=== PATIENT | male | born 1970 | race Caucasian/White ===

== ENCOUNTER 2024-07-03 02:30 | Emergency (ER) | payer BC, SELFPAY ==
[2024-07-03 02:31] VITALS: BP 132/80; BP 143/93; PULSE 104; PULSE 107; RESP 18; TEMP 37.2; O2SAT 97; O2SAT 98; BMI 22.9
--- NOTE | 2024-07-03 02:35 | PC.NURSE ---
MD obrien made aware of L. eye swollen shut and bleeding/purulent drainage. dressing placed on eye, awaiting eval by provider.
--- OUTSIDE RECORDS SUMMARY | 2024-07-03 03:05 | XMS_ITS | Continuity of Care Document ---
Author Name [facility] Organization [facility] Care Team Providers Care Driller Helper Name Role Phone [facility] Unavailable Unavailable Problems Combined list of problems from Department of Defense and Veterans Affairs facilities. It does not include entries that were removed or entered in error. 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 right worse than left/ Dr Malin NEOS surg planned 04/23 [facility] Gout (SCT [id number]) Active Condition [facility] Hepatic fibrosis Active Condition Sep 15, 2022 Entered By: AR COSTELLO Comment: see consult notes from [facility] telehepatology/ Jun 2022 [facility] History of surgery Active Condition Jan 24, 2019 Entered By: CELINE ALCANTARA Comment: total knee replacement 2018 Entered By: CELINE ALCANTARA Comment: right elbow ( mass removed - calcium deposit removed [facility] Hyponatraemia Active Condition Oct Entered By: AR COSTELLO Comment: d/w vet plan to reduce fluid intake/ recheck labs February 13/ f/u appt Feb 20 [facility] Neutrophil count below reference range Active Condition Nov 08, 2022 Entered By: AR COSTELLO Comment: longstanding low WBC/ no known w/u in past/ likely due to etoh/ documented low WBC in 2018 [facility] Osteoarthritis of right knee joint Active Condition May 15 3 Entered By: AR COSTELLO Comment: mod to severe/ last plain film 2019 , vet wants handicap placard 2022 [facility] Primary insomnia Active Condition [facility] Serum AST (aspartate aminotransferase) level outside reference range Active Condition Mar 27, 2024 Entered By: AR COSTELLO Comment: prob related to etoh use [facility] Sleep apnea syndrome Active Condition Oct 31, 2022 Entered By: AR COSTELLO Comment: see Pulm consult 2020 [facility] Under care of multiple providers Active Condition Jan 11, 2019 Entered By: CELINE ALCANTARA [facility] Entered By: CELINE ALCANTARA Comment: [facility] Major depressive disorder, recurrent, moderate Active Condition DoD Diagnosis: ICD-10-CM M10.9 Gout, unspecified Active Diagnosis [facility] Diagnosis: ICD-10-CM F10.10 Alcohol abuse, uncomplicated Active Diagnosis [facility] Diagnosis: ICD-10-CM F41.9 Anxiety disorder, unspecified Active Diagnosis [facility] Diagnosis: ICD-10-CM G47.00 Insomnia, unspecified Active Diagnosis [facility] Medications Combined list of outpatient medications from Department of Defense and Veterans Affairs facilities.Medications provided include 1) outpatient medications from the last 15 months, and 2) patient-reported medications. Medication Details Route Status Patient Instructions Prescription Expires Prescription Number Last Dispense Date Ordering Provider Order Date Order Qty Source ALLOPURINOL 100MG TAB TAKE ONE TABLET BY MOUTH ONCE DAILY FOR GOUT ORAL ACTIVE 08/28/2024 [id number] RobiBEBETOKISHANQUEENIE MOREL 2023 90 [facility] ALLOPURINOL 100MG TAB TAKE ONE TABLET BY MOUTH ONCE DAILY ORAL ACTIVE Karina CARDOZO HUMAIRA 2021 [facility] COLCHICINE 0.6MG TAB TAKE ONE TABLET BY MOUTH ONCE DAILY FOR GOUT ORAL ACTIVE 08/28/2024 [id number] RobiLuciaNYAQUEENIE MOREL KARIS Nancy 2023 90 [facility] COLCHICINE TAB TAKE BY MOUTH ONCE DAILY NEEDED ORAL ACTIVE PETROFF,S UANNE 2018 [facility] NAPROXEN 250MG TAB TAKE ONE TABLET BY MOUTH PRN ORAL ACTIVE Karina CARDOZO HUMAIRA 2021 [facility] Immunizations Combined list of available immunizations from the Department of Defense and Veterans Affairs facilities. Immunization Series Date Given Administered By Site Reaction Lot Number CVX Code Drug Splitting Machine Feeder Status Comments Source COVID-19 (MODERNA), MRNA, LNP-S, PF, 50 MCG/0.5 ML (AGES 12+ YEARS) 3 2023 CHARO JOHNS RIGHT DELTO ID [id number] 312 complet ed [facility] INFLUENZA, INJECTABLE, QUADRIVALENT, PRESERVATIVE FREE 2023 CHARO JOHNS LEFT DELTO ID [id number] A 150 complet ed [facility] PNEUMOCOCCAL CONJUGATE PCV20, POLYSACCHARID E [id number] CONJUGATE, ADJUVANT, PF 2022 ALEX BALDWIN LEFT DELTO ID [id number] 216 complet ed [facility] INFLUENZA, UNSPECIFIED FORMULATION 2022 88 complet ed [facility] INFLUENZA, UNSPECIFIED FORMULATION 2020 88 complet ed [facility] COVID-19 (MODERNA), MRNA, LNP-S, PF, 100 MCG/0.5ML DOSE OR 50 MCG/0.25ML DOSE 2 2020 207 complet ed [facility] COVID-19 (MODERNA), MRNA, LNP-S, PF, 100 MCG/0.5ML DOSE OR 50 MCG/0.25ML DOSE 1 2020 207 complet ed [facility] INFLUENZA, SEASONAL, INJECTABLE 2019 141 complet ed [facility] Influenza, seasonal, injectable 1 2017 141 Transcribed (TRS) complet ed Influenza , seasonal, injectabl e DoD INFLUENZA, SEASONAL, INJECTABLE 2017 141 complet ed [facility] Influenza, seasonal, injectable 1 2016 [id number] 141 Seqirus (SEQ) comple t ed Influenza , seasonal, injectabl e DoD Influenza, injectable, Madin Nelson Canine Kidney, preservative free, quadrivalent 1 2016 [id number] 171 Seqirus (SEQ) comple t ed Influenza , injectabl e, Madin Irma Canine Kidney, preservat nydia free, quadrival ent DoD Influenza, seasonal, injectable, preservative free 10 2015 [id number] Seqirus (SEQ) comple t ed Influenza , seasonal, injectabl e, preservat nydia free DoD Influenza, seasonal, injectable, preservative free 9 2014 [id number] 140 CSL [employer] (CSL) complet ed Influenza , seasonal, injectabl e, preservat nydia free DoD Influenza, seasonal, injectable, preservative free 0 2013 [id number] 140 CSL [employer] (CSL) complet ed Influenza , seasonal, injectabl e, preservat nydia free DoD Influenza, injectable, Madin Nelson Canine Kidney, preservative free 7 2012 [id number] 153 Novartis Pharmaceutica l Shraddha. (NOV) complet ed Influenza , injectabl e, Madin Irma Canine Kidney, preservat nydia free DoD tetanus toxoid, reduced diphtheria toxoid, and acellular pertu is vaccine, adsorbed 0 2012 [id number] 115 Sanofi Pasteur (PMC) complet ed tetanus toxoid, reduced diphtheri a toxoid, and acellular pertussis vaccine, adsorbed DoD Influenza, seasonal, injectable, preservative free 6 2012 [id number] 140 [employer] (CSL) complet ed Influenza , seasonal, injectabl e, preservat nydia free DoD Influenza, seasonal, injectable, preservative free 5 2011 [id number] 140 CS [employer]olog[employer] Inc. (CSL) complet ed Influenza , seasonal, injectabl e, preservat nydia free DoD influenza virus vaccine, split virus (incl. purified surface antigen)-reti red CODE [id number] [facility] [employer]. (CSL) complet ed influenza virus vaccine, split virus (incl. purified surface antigen)- retired CODE DoD Novel influenza-H1N 1-09, injectable 1 2009 [id number] 127 Novartis Apalya. (NOV) complet ed Novel influenza -R1I1-41, injectabl e DoD influenza virus vaccine, live, attenuated, for intranasal use 1 2008 [id number] 111 [employer]. (MED) complet ed influenza virus vaccine, live, attenuate d, for intranasa l use DoD influenza virus vaccine, split virus (incl. purified surface antigen)-reti red CODE 1 2008 [id number] 15 BioPro [employer] ([facility]) complet ed influenza virus vaccine, split virus (incl. purified surface antigen)- retired CODE DoD hepatitis A vaccine, adult dosage 2 2007 [id number] 52 [employer] (SKB) complet ed hepatitis A vaccine, adult dosage DoD hepatitis A vaccine, adult dosage 1 2007 [id number] Merck (MSD) complet ed hepatitis A vaccine, adult dosage DoD influenza virus vaccine, split virus (incl. purified surface antigen)-reti red CODE 1 2006 [id number] 3AA 15 [employer] (B) complet ed influenza virus vaccine, split virus (incl. purified surface antigen)- retired CODE DoD tetanus and diphtheria toxoids, adsorbed, preservative free, for adult use (2 Lf of tetanus toxoid and 2 Lf of diphtheria toxoid) 1 2006 [id number] 09 Sanofi Pasteur ([facility]) complet ed tetanus and diphtheri a toxoids, adsorbed, preservat nydia free, for adult use (2 Lf of tetanus toxoid and 2 Lf of diphtheri a toxoid) DoD hepatitis B vaccine, adult dosage 3 1995 43 Transcribed (TRS) complet ed hepatitis B vaccine, adult dosage DoD measles, mumps and rubella virus vaccine 1 1979 03 Transcribed (TRS) complet ed measles, mumps and rubella virus vaccine DoD trivalent poliovirus vaccine, live, oral 1 1979 02 Transcribed (TRS) complet ed trivalent polioviru s vaccine, live, oral DoD Results Combined list of recent chemistry, hematology and other laboratory results from Department of Defense and Veterans Affairs, ranging from 15 months to all on record, depending upon the facility. Order Name Results Value Reference Range Date Interpretation Specimen Comments Source HEPATITI S B SURFACE ANTIGEN (HBsAg)- WH HEPATITIS B VIRUS SURFACE AG [PRESENCE] IN SERUM OR PLASMA BY IMMUNOASSA Y Non Reactive 03/27 Specimen Type: SERUM Comment: This test detects both IgG and IgM antibodies. A Reactive result ( Positive prior to 04/29/13) may indicate either current or previous hepatitis B infection. Antibodies to Hepatitis B Core may be the only marker of recent hepatitis B infection during the window period when Hepatitis B surface antigen has disappeared and Hepatitis B surface antibodies are not yet detectable. A Reactive result ( Positive prior to 04/29/13) is diagnostic of acute or chronic hepatitis B infection. The presence of Hepatitis B surface antigen is frequently associated with infectivity . Ordering Provider: RAN LERMA Report Released Date/Time: Mar 27, 2024 12:01 PM Reporting Lab: [facility] [address] [address] Performing Lab: [facility] [address] [address] [facility] HEPATITI S B CORE (Total) Ab HEPATITIS B VIRUS CORE AB [PRESENCE] IN SERUM OR PLASMA BY IMMUNOASSA Y Non Reactive 03/27 Specimen Type: SERUM Comment: This test detects both IgG and IgM antibodies. A Reactive result ( Positive prior to 04/29/13) may indicate either current or previous hepatitis B infection. Antibodies to Hepatitis B Core may be the only marker of recent hepatitis B infection during the window period when Hepatitis B surface antigen has disappeared and Hepatitis B surface antibodies are not yet detectable. A Reactive result ( Positive prior to 04/29/13) is diagnostic of acute or chronic hepatitis B infection. The presence of Hepatitis B surface antigen is frequently associated with infectivity . Ordering Provider: RAN LERMA Report Released Date/Time: Mar 27, 2024 12:01 PM Reporting Lab: [facility] [address] [address] Performing Lab: [facility]ITALRCHILDR[facility]USN [facility] [address] [facility] [address] [facility] CRISTINA SCREEN/T ITER NUCLEAR AB [PRESENCE] IN SERUM NEG 03/27 Specimen Type: SERUM No comment entered. Ordering Provider: RAN LERMA Report Released Date/Time: Mar 27, 2024 12:01 PM Reporting Lab: [facility] [address] Performing Lab: [facility] [address] [facility] [address] [facility] URIC ACID URATE [MASS/VOLU ME] IN SERUM OR PLASMA 7.4 mg/dL 3.5 - 7.2 03/27 H Specimen Type: SERUM No comment entered. Ordering Provider: RAN LERMA Report Released Date/Time: Mar 27, 2024 12:01 PM Reporting Lab: [facility] [address] Performing Lab: [facility]PITALRMOUNTAIN VIEW HOSPITALTRN [facility]ENTERCHUSETS [address] [address] [facility]N [facility] FERRITIN FERRITIN [MASS/VOLU ME] IN SERUM OR PLASMA 322 ng/mL 20 - 300 03/27 H Specimen Type: SERUM No comment entered. Ordering Provider: RAN LERMA Report Released Date/Time: Mar 27, 2024 12:01 PM Reporting Lab: [facility] [address] Performing Lab: [facility] [place] [facility] [address] [facility] [address] [facility] HEPATITI S C ANTIBODY (HCV)-AR C HEPATITIS C VIRUS AB [PRESENCE] IN SERUM NON-REAC TIVE 03/27 Specimen Type: SERUM Comment: Hep C Ab: No HCV antibody detected. If recent infection is suspected or other evidence suggests HCV infection, consider HCV nucleic acid testing Ordering Provider: RAN LERMA Report Released Date/Time: Mar 27, 2024 12:01 PM Reporting Lab: [facility] [place] [place] [facility] [address] [facility] [address] Performing Lab: [facility] [place] [facility] [address] [facility] [address] [facility] ALBUMIN ALBUMIN [MASS/VOLU ME] IN SERUM OR PLASMA 4.2 g/dL 3.5 - 5.0 03/27 Specimen Type: SERUM No comment entered. Ordering Provider: RAN LERMA Report Released Date/Time: Mar 27, 2024 12:01 PM Reporting Lab: [facility]ITALRL TRN [facility]ITALUSETS [facility] [address] [facility] [address] Performing Lab: [facility] [place] [facility] [address] [facility] [address] [facility] IRON & TIBC PANEL IRON BINDING CAPACITY [MASS/VOLU ME] IN SERUM OR PLASMA 333 ug/dL 204 - 475 03/27 Specimen Type: SERUM No comment entered. Ordering Provider: RAN LERMA Report Released Date/Time: Mar 27, 2024 12:01 PM Reporting Lab: [facility] [place] [place] [facility] [address] [facility] [address] Performing Lab: [place] [facility] [place] [facility] [address] [facility] [address] [facility]OSPITALRMOUNTAIN VIEW HOSPITALTRN [facility]ENTERCHUSE [facility] IRON & TIBC PANEL IRON [MASS/VOLU ME] IN SERUM OR PLASMA 161 ug/dL 40 - 160 09/11 /2024 H Specimen Type: SERUM No comment entered. Ordering Provider: RAN LERMA Report Released Date/Time: Mar 27, 2024 12:01 PM Reporting Lab: [facility] [place] [facility] [address] [facility] [address] Performing Lab: [facility] [place] [facility] [address] [facility] [address] [facility] [place] [facility] IRON & TIBC PANEL IRON/IRON BINDING CAPACITY.T OTAL [MASS RATIO] IN SERUM OR PLASMA 48.4 20.0 - 50.0 03/27 Specimen Type: SERUM No comment entered. Ordering Provider: RAN LERMA Report Released Date/Time: Mar 27, 2024 12:01 PM Reporting Lab: [facility] [place] [facility] [address] [facility] [address] Performing Lab: [facility] [place] [facility] [address] [facility] [address] [facility] [place] [facility] IRON & TIBC PANEL TRANSFERRI N [MASS/VOLU ME] IN SERUM OR PLASMA 252 mg/dL 200 - 360 03/27 Specimen Type: SERUM No comment entered. Ordering Provider: RAN LERMA Report Released Date/Time: Mar 27, 2024 12:01 PM Reporting Lab: [facility] [place] [address] [address] Performing Lab[facility] [place] [facility] [address] [facility] [address] [facility] PROTEIN, TOTAL PROTEIN [MASS/VOLU ME] IN SERUM OR PLASMA 6.9 g/dL 6.0 - 8.3 03/27 Specimen Type: SERUM No comment entered. Ordering Provider: RAN LERMA Report Released Date/Time: Mar 27, 2024 12:01 PM Reporting Lab: [facility] [place] [facility] [address] [facility] [address] Performing Lab: [facility] [place] [address] [address] [facility] ALKALINE PHOSPHAT ASE ALKALINE PHOSPHATAS E [ENZYMATIC ACTIVITY/V OLUME] IN SERUM OR PLASMA 43 U/L 40 - 150 03/27 Specimen Type: SERUM No comment entered. Ordering Provider: RAN LERMA Report Released Date/Time: Mar 27, 2024 12:01 PM Reporting Lab: [facility] [place] [facility] [address] [facility] [address] Performing Lab: [facility] [address] [facility] [address] [facility] Vital Signs Combined list of inpatient and outpatient Vital Signs from Department of Defense and Veterans Affairs, ranging from 12 months to all on record, depending upon the facility. Vital Sign Value Date Comments Source SYSTOLIC BLOOD PRESSURE 158 03/27/20 11:44:09 [facility] DIASTOLIC BLOOD PRESSURE 82 024 11:44:09 [facility] PULSE OXIMETRY 96 03/27/2024 11:44:09 [facility] WEIGHT 153.8 03/27/2024 11:44:09 [facility] BMI 23kg/m2 03/27/2024 11:44:09 [facility] PAIN 6 03/27/2024 11:44:09 [facility] HEIGHT 69 03/27/2024 11:44:09 [facility] TEMPERATURE 97.7 03/27/2024 11:44:09 [facility] PULSE 98 03/27/2024 11:44:09 [facility] RESPIRATION 16 03/27/2024 11:44:09 [facility] SYSTOLIC BLOOD PRESSURE 133 08/28/19 24 14:11:04 [facility] DIASTOLIC BLOOD PRESSURE 87 024 14:11:04 [facility] PULSE OXIMETRY 96 08/28/2023 14:11:04 [facility] WEIGHT 150 08/28/2023 14:11:04 [facility] BMI 22kg/m2 08/28/2023 14:11:04 [facility] PAIN 0 08/28/2023 14:11:04 [facility] TEMPERATURE 98 08/28/2023 14:11:04 [facility] PULSE 94 08/28/2023 14:11:04 [facility] RESPIRATION 16 08/28/2023 14:11:04 [facility] Encounters Combined list of: 1) Encounters from Department of Veterans Affairs facilities going back up to thelast 18 months. 2) Encounters from the Department of Defense facilities going back up to 280 months. Location Location Details Encounter Type Encounter Number Reason For Visit Attending Provider ADM Date DC Date Status Disposition Source [facility] Encounter [id number] 01/10 [facility] [id number] 01/19 [facility] OFFICE O/P EST MOD 30-39 MIN [id number] Diagnos is: ICD-10- CM G47.00 Insomni a, unspeci fied
RAN LOCKE 02/20 [facility] En[facility] [id number] JOHNIE VERGARA 04/12 [facility] [id number] 10/19 /2023 [facility] [id number] 05/30 [facility] En[facility] [id number] 05/31 [facility] QNHP OL DIG ASSMT&MGMT 21+ [id number] Diagnos is: ICD-10- CM F41.9 Anxiety disorde r, unspeci fied
LEI CHAO 08/22 [facility] OFFICE O/P EST MOD 30 MIN [id number] Diagnos is: ICD-10- CM F10.10 Alcohol abuse, uncompl icated< br/> RAN LOCKE 08/28 [facility] En[facility] [id number] [facility] En[facility] [id number] 09/14 [facility] En[facility] [id number] 10/12 [facility] En[facility] [id number] ADRIANA PORTILLO 10/30 [facility] En[facility] [id number] 11/13 [facility] En[facility] [id number] 11/20 [facility] Out[facility] Encounter [id number] 11/27 [facility] En[facility] [id number] 11/27 [facility] OFFICE O/P EST MOD 30 MIN [id number] Diagnos is: ICD-10- CM M10.9 Gout, unspeci fied
RAN LOCKE 03/27 [facility] [id number] 03/28 [facility] Out[facility] Encounter [id number] 06/24 [facility] Encounter [id number] 06/24 [facility] Procedures Combined list of: 1) Procedures from Department of Veterans Affairs facilities going back up to thelast 18 months, not all VA non-surgical procedures are included; 2) All procedures from the Department of Defense facilities. Procedure Procedure Type Code Date Perfomer Comments Sourc e PSYCHIATRIC DIAGNOSTIC EVALUATION 12/31/2019 [facility] BRIEF EMOTIONAL/BEHAVIORAL ASSESSMENT (EG, DEPRESSION INVENTORY, ATTENTION-DEFICIT/HY PERACTIVITY DISORDER [ADHD] SCALE), WITH SCORING AND DOCUMENTATION, PER STANDARDIZED INSTRUMENT 06/05/2019 [facility] Psychiatric Diagnostic Evaluation Comprehensive Examination Psychiatric Diagnostic Evaluation Comprehensive Examination 27960 KERRY HURTADO DoD Psychometric Emotional / Behavioral A e ment Psychometric Emotional / Behavioral Assessment 04130 KERRY HURTADO DoD Waiver services; not otherwise specified (NOS) OTTATI, ZACHARY [facility] Social History Combined list of available smoking, tobacco, and other social history from Department of Defense and Veterans Affairs facilities. Social History Type Response Date Comment Sourc e Tobacco smoking status NHIS VA-TOBACCO USER EVERY DAY 03/27/2024 [facility] [place] [facility] History of tobacco use VA-TOBACCO DOESNT USE WI 30 MIN WAKEUP 03/27/2024 [facility] [place] [facility] History of tobacco use VA-TOBACCO NEVER USED 10/17/2022 [facility] [place] [facility] History of tobacco use VA-TOBACCO USER EVERY DAY 10/15/2021 [facility] [place] [facility] History of tobacco use VA-TOBACCO USE ADVICE 03/24/2020 [facility] [place] [facility] History of tobacco use 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 [facility] Plan of Care List of future care activities from [facility] facilities. Additional future care activities may be listed in the Assessment and Plan section. Date/Time Care Activity Care Activity Detail Facili ty 10/31/2024 AMBULATORY - MEDICINE AMBULATORY - MEDICI NE [facility] [place] [facility]
--- OUTSIDE RECORDS SUMMARY | 2024-07-03 03:05 | XMS_ITS ---
Author Name [facility] [place] [facility] [place] Address [address] [place] [address] Care Team Providers Care Certified Performance Technologist Name Role Phone RAN COSTELLO Primary Care Provider Unav ailable Insurance Providers: All historical and current Section Date Range: From patient's date of to the date document was created. This section includes the names of all active insurance providers for the patient. Insurance Provider Type of Coverage Plan Name Start of Policy Coverage End of Policy Coverage Group Number Member ID Insurance Provider's Telephone Number Policy Serrano's Name Patient's Relationship to Policy Serrano KAYLIE WALLIS CT FEDERAL PREFERRED PROVIDER ORGANIZAT ION (PPO) STAND YSABEL SELF Jul 26, 2015 [id number] BEN RAN Garcia PATIENT BCBS [place] FEP PREFERRED PROVIDER ORGANIZAT ION (PPO) STAND YSABEL INDIV IDUAL Jul 26, 2015 [id number] BEN GarciaRAN PATIENT CAREMARK FEPRX PLAN PRESCRIPT ION CAREM ARK FEPRX Jul 26, 2015 [id number] BEN RAN Garcia PATIENT CAREMARK-F EP BCBS PRESCRIPT ION FEP CAREM ARK Jul 26, 2015 [id number] BEN GarciaRAN PATIENT Selected Encounter This section includes the information on record at [place] for the Encounter. Date/Time Encounter Type Encounter Description Reason Provider Source Aug 22, 2023 09:21 AM QNHP OL DIG ASSMT&MGMT 21+ MH INTGRTD CARE IND ICD-10-CM F41.9 Anxiety disorder, unspecified HELENE CHAO Karina Encounter Template Text not used by [place] Assessments - Encounter Diagnoses This section includes the primary and secondary diagnoses documented for the Encounter. Date/Time Primary/Secondary Diagnosis Diagnosis Name Provider Source Sep 06, 2023 02:26 PM PRIMARY Anxiety disorder, unspecified HELENE CHAO [facility] Plan of Treatment: Future Appointments (+ 6 months) and Future Tests (+/- 45 days) The Plan of Treatment section includes future care activities for the patient from all [facility] This section includes future appointments and future orders which are active, pending or scheduled. Future Appointments This section includes appointments that were scheduled to occur 6 months from the date of the Encounter, up to a maximum of 20 appointments. The data comes from all [facility]. Appointment Date/Time Appointment Type Appointme nt Facility Name Aug 28, 2023 02:00 PM AMBULATORY - MEDICINE [facility] Nov 14, 2023 01:45 PM AMBULATORY - MEDICINE [facility] Active, Pending, and Scheduled Orders This section includes a listing of several types of active, pending, and scheduled orders, including clinic medications orders, diagnostic test orders, procedure orders and consult orders; where the start date of the order is 45 days before the date of the Encounter or 45 days after the date of theEncounter. The data comes from all [facility]. Test Date/Time Test Type Test Details Facility Name Aug 28, 2023 12:00 AM Laboratory - Chemistry Order BASIC METABOLIC PANEL (non-fasting) BLOOD (SST-SERUM) [facility] Aug 28, 2023 12:00 AM Laboratory - Chemistry Order GAMMA-GTP BLOOD (SST-SERUM) [facility] Aug 28, 2023 12:00 AM Laboratory - Chemistry Order CALCIUM BLOOD (SST-SERUM) [facility] Aug 28, 2023 12:00 AM Laboratory - Chemistry Order MAGNESIUM BLOOD (SST-SERUM) [facility] Aug 28, 2023 12:00 AM Laboratory - Chemistry Order HEMOGLOBIN A1C PANEL BLOOD (LAV-BLOOD) [facility] Aug 28, 2023 12:00 AM Laboratory - Chemistry Order TSH BLOOD (SST-SERUM) [facility] Aug 28, 2023 12:00 AM Laboratory - Chemistry Order CBC AND DIFF (AUTO) BLOOD (LAV-BLOOD) [facility] Aug 28, 2023 12:00 AM Laboratory - Chemistry Order HEPATITIS B SURFACE ANTIGEN (HBsAg)-WH BLOOD (SST-SERUM) [facility] Aug 28, 2023 12:00 AM Laboratory - Chemistry Order HEPATITIS B CORE (Total) Ab BLOOD (SST-SERUM) [facility] Aug 28, 2023 12:00 AM Laboratory - Chemistry Order FERRITIN BLOOD (SST-SERUM) [facility] Aug 28, 2023 12:00 AM Laboratory - Chemistry Order HEPATITIS C ANTIBODY (HCV)-ARC BLOOD (MARBLED-TOP SERUM) [facility] Aug 28, 2023 12:00 AM Laboratory - Chemistry Order IRON & TIBC PANEL BLOOD (SST-SERUM) [facility] Aug 28, 2023 12:00 AM Laboratory - Chemistry Order CRISTINA SCREEN/TITER BLOOD (SST-GOLD) SERUM [facility] Aug 28, 2023 12:00 AM Laboratory - Chemistry Order ALBUMIN BLOOD (SST-SERUM) [facility] Aug 28, 2023 12:00 AM Laboratory - Chemistry Order PROTEIN,TOTAL BLOOD (SST-SERUM) SP [facility] Aug 28, 2023 12:00 AM Laboratory - Chemistry Order ALKALINE PHOSPHATASE BLOOD (SST-SERUM) [facility] Aug 28, 2023 12:00 AM Laboratory - Chemistry Order ALBUMIN BLOOD (SST-SERUM) [facility] Aug 28, 2023 12:00 AM Laboratory - Chemistry Order AST BLOOD (SST-SERUM) [facility] [place] [facility] Aug 28, 2023 12:00 AM Laboratory - Chemistry Order BILIRUBIN, TOTAL BLOOD (SST-SERUM) SP [place] [facility] [place] [facility] Aug 28, 2023 12:00 AM Laboratory - Chemistry Order ALT BLOOD (SST-SERUM) [facility] [place] [facility] Aug 28, 2023 12:00 AM Laboratory - Chemistry Order URIC ACID BLOOD (SST-SERUM) [facility] [place] [facility] Aug 28, 2023 12:00 AM Laboratory - Chemistry Order BILIRUBIN, DIRECT BLOOD (SST-SERUM) [facility] [place] [facility] Aug 28, 2023 02:30 PM Laboratory - Chemistry Order PT & INR (PROTIME) BLOOD (BLUE-PLASMA) [facility] Social History: Smoking Status (Most current) and Tobacco Use (All prior to encounter date) This section includes the most current, and the historical, smoking and tobacco- related health factors from the [place] facility where the Encounter took place. Current Smoking Status This section includes the most current smoking, or tobacco-related health factor, from the [place] facility where the Encounter took place. Date/Time Current Smoking Status Comment Facil ity Oct 17, 2022 01:00 PM VA-TOBACCO [facility] USED [facility] Tobacco Use History This section includes a history of the smoking, or tobacco-related health factors, that were collected on or before the date of the Encounter. The data comes from the [place] facility where the Encounter took place. Date/Time Smoking Status/Tobacco Use Comment F acility Oct 15, 2021 01:30 PM VA-TOBACCO USE 30 YEARS OR MORE [place] [facility] [place] [facility] Oct 15, 2021 01:30 PM VA-TOBACCO USE ADVICE [place] [facility] [place] [facility] Oct 15, 2021 01:30 PM VA-TOBACCO USE FINANCIAL ACCOUNTANT NO [place] [facility] [place] [facility] Oct 15, 2021 01:30 PM VA-TOBACCO USE MED NO [place] [facility] [place] [facility] Oct 15, 2021 01:30 PM VA-TOBACCO USE [place] 30 MIN OF WAKEUP [place] [facility] [place] [facility] Oct 15, 2021 01:30 PM VA-TOBACCO USER EVERY DAY [facility] [place] [facility] Mar 24, 2020 03:00 PM VA-TOBACCO USE 30 YEARS OR MORE [facility] [place] [facility] Mar 24, 2020 03:00 PM VA-TOBACCO USE ADVICE [facility] [place] [facility] Mar 24, 2020 03:00 PM VA-TOBACCO USE FINANCIAL ACCOUNTANT NO [facility] [place] [facility] Mar 24, 2020 03:00 PM VA-TOBACCO USE MED NO [facility] [place] [facility] Mar 24, 2020 03:00 PM VA-TOBACCO USE [place] 30 MIN OF WAKEUP [facility] [place] [facility] Mar 24, 2020 03:00 PM VA-TOBACCO USER EVERY DAY [facility] [place] [facility] Dec 24, 2018 02:37 PM VA-TOBACCO USE > 1 5 LESS THAN 30 YEARS [facility] [place] [facility] Dec 24, 2018 02:37 PM VA-TOBACCO USE ADVICE [facility] [place] [facility] Dec 24, 2018 02:37 PM VA-TOBACCO USE FINANCIAL ACCOUNTANT NO [facility] [place] [facility] Dec 24, 2018 02:37 PM VA-TOBACCO USE MED NO [facility] [place] [facility] Dec 24, 2018 02:37 PM VA-TOBACCO USE [place] 30 MIN OF WAKEUP [facility] [place] [facility] Dec 24, 2018 02:37 PM VA-TOBACCO USER EVERY DAY [facility] [place] [facility] Encounter Notes: All associated encounter notes This section contains the clinical notes associated to the Encounter. Date/Time Encounter Note(s) Provider Source Aug 22, 2023 09:21 AM MENTAL HEALTH CONS ULT: LOCAL TITLE: PC-MH INTEGRATION/CONSULT REPORT STANDARD TITLE: MENTAL HEALTH CONSULT DATE OF NOTE: AUG 22, 2023@09:21:53 ENTRY DATE: AUG 22, 2023@09:24:12 AUTHOR: HELENE CHAO EXP COSIGNER: URGENCY: STATUS: COMPLETED Flight Operations Inspector has reviewed chart for course of treatment in mental health for PCP to review and consider for management of psychiatric medication)s) in primary care. is prescribed hydroxyzine for a diagnosis of anxiety. Summary is as follows Psychiatric course of treatment: trazodone 2022 melatonin 2022 hydroxyzine 2022-present Psychotherapy course of treatment: has been seen for a few walk in appointments in 2021 Current reported symptoms: has not returned multiple phone calls from technical proposal writer and from JAYDEN Stone. [place] has known stressors at work PCP is already prescribing medication as of this report. If [place] needs to engage in mental health for pharmacology in the future he can. Time Spent on chart review: 22 minutes /ankita/ Helene CONLEY RN PCMHI PANEL INSTRUMENT REPAIRER Signed: 08/24/2023 10:06 HELENE CHAO [facility]
--- OUTSIDE RECORDS SUMMARY | 2024-07-03 03:05 | XMS_ITS ---
Author Name [place] Address [address] [place] [address] Care Team Providers Care Long Term Care Administrator Name Role Phone RAN COSTELLO Primary Care [...] Name Patient's Relationship to Policy Serrano KAYLIE CHAUBS CT FEDERAL PREFERRED PROVIDER ORGANIZAT ION (PPO) STAND YSABEL SELF Jul 26, 2015 [id number] BEN RAN Garcia PATIENT BCBS [place] FEP PREFERRED PROVIDER ORGANIZAT ION (PPO) STAND YSABEL INDIV IDUAL Jul 26, 2015 [id number] BEN GarciaRAN PATIENT CAREMARK FEPRX PLAN PRESCRIPT ION CAREM ARK FEPRX Jul 26, 2015 [id number] BEN RAN Garcia PATIENT CAREMARK-F EP BCBS PRESCRIPT ION FEP CAREM ARK Jul 26, 2015 [id number] BEN GarciaRAN PATIENT Selected Encounter This section includes the information on record at [place] for the Encounter. Date/Time Encounter Type Encounter Description Reason Pro vider Source Sep 15, 2023 08:06 AM Outpatient Encounter PRIMARY CARE/MEDICINE [facility] Encounter Template Text not used by [place] Plan of Treatment: Future Appointments (+ 6 months) and Future Tests (+/- 45 days) The Plan of Treatment section includes future care activities for the patient from all [place] [facility]. This section includes future appointments and future orders which are active, pending or scheduled. Future Appointments This section includes appointments that were scheduled to occur 6 months from the date of the Encounter, up to a maximum of 20 appointments. The data comes from all [facility]. Appointment Date/Time Appointment Type Appointme nt Facility Name Nov 14, 2023 01:45 PM AMBULATORY - MEDICINE [facility] Active, Pending, and Scheduled Orders This section includes a listing of several types of active, pending, and scheduled orders, including clinic medications orders, diagnostic test orders, procedure orders and consult orders; where the start date of the order is 45 days before the date of the Encounter or 45 days after the date of theEncounter. The data comes from all [facility]. Test Date/Time Test Type Test Details Facility Name Aug 28, 2023 12:00 AM Laboratory - Chemistry Order BASIC METABOLIC PANEL (non-fasting) BLOOD (SST-SERUM) [facility] Aug 28, 2023 12:00 AM Laboratory - Chemistry Order GAMMA-GTP BLOOD (SST-SERUM) [facility] Aug 28, 2023 12:00 AM Laboratory - Chemistry Order CALCIUM BLOOD (SST-SERUM) [facility] Aug 28, 2023 12:00 AM Laboratory - Chemistry Order MAGNESIUM BLOOD (SST-SERUM) [facility] Aug 28, 2023 12:00 AM Laboratory - Chemistry Order HEMOGLOBIN A1C PANEL BLOOD (LAV-BLOOD) [facility] Aug 28, 2023 12:00 AM Laboratory - Chemistry Order TSH BLOOD (SST-SERUM) [facility] Aug 28, 2023 12:00 AM Laboratory - Chemistry Order CBC AND DIFF (AUTO) BLOOD (LAV-BLOOD) [facility] Aug 28, 2023 12:00 AM Laboratory - Chemistry Order HEPATITIS B SURFACE ANTIGEN (HBsAg)-WH BLOOD (SST-SERUM) [facility] Aug 28, 2023 12:00 AM Laboratory - Chemistry Order HEPATITIS B CORE (Total) Ab BLOOD (SST-SERUM) SP [facility] Aug 28, 2023 12:00 AM Laboratory - Chemistry Order FERRITIN BLOOD (SST-SERUM) SP [facility] Aug 28, 2023 12:00 AM Laboratory - Chemistry Order HEPATITIS C ANTIBODY (HCV)-ARC BLOOD (MARBLED-TOP SERUM) SP [facility] Aug 28, 2023 12:00 AM Laboratory - Chemistry Order IRON & TIBC PANEL BLOOD (SST-SERUM) [facility] Aug 28, 2023 12:00 AM Laboratory - Chemistry Order CRISTINA SCREEN/TITER BLOOD (SST-GOLD) SERUM SP [facility] Aug 28, 2023 12:00 AM Laboratory - Chemistry Order ALBUMIN BLOOD (SST-SERUM) SP [facility] Aug 28, 2023 12:00 AM Laboratory - Chemistry Order PROTEIN,TOTAL BLOOD (SST-SERUM) SP ONCE [facility] Aug 28, 2023 12:00 AM Laboratory - Chemistry Order ALKALINE PHOSPHATASE BLOOD (SST-SERUM) [facility] Aug 28, 2023 12:00 AM Laboratory - Chemistry Order ALBUMIN BLOOD (SST-SERUM) [facility] Aug 28, 2023 12:00 AM Laboratory - Chemistry Order AST BLOOD (SST-SERUM) SP [facility] Aug 28, 2023 12:00 AM Laboratory - Chemistry Order BILIRUBIN, TOTAL BLOOD (SST-SERUM) SP [facility] Aug 28, 2023 12:00 AM Laboratory - Chemistry Order ALT BLOOD (SST-SERUM) SP [facility] Aug 28, 2023 12:00 AM Laboratory - Chemistry Order URIC ACID BLOOD (SST-SERUM) [facility] Aug 28, 2023 12:00 AM Laboratory - Chemistry Order BILIRUBIN, DIRECT BLOOD (SST-SERUM) [place] [facility] [place] [facility] Aug 28, 2023 02:30 PM Laboratory - Chemistry Order PT & INR (PROTIME) BLOOD (BLUE-PLASMA) SP [place] [facility] [place] [facility] Social History: Smoking Status (Most current) and Tobacco Use (All prior to encounter date) This section includes the most current, and the historical, smoking and tobacco- related health factors from the [place] facility where the Encounter took place. Current Smoking Status This section includes the most current smoking, or tobacco-related health factor, from the [place] facility where the Encounter took place. Date/Time Current Smoking Status Comment Facil ity Oct 17, 2022 01:00 PM VA-TOBACCO NEVER USED [facility] Tobacco Use History This section includes a history of the smoking, or tobacco-related health factors, that were collected on or before the date of the Encounter. The data comes from the [place] facility where the Encounter took place. Date/Time Smoking Status/Tobacco Use Comment F acility Oct 15, 2021 01:30 PM VA-TOBACCO USE 30 YEARS OR MORE [place] [facility] [place] [facility] Oct 15, 2021 01:30 PM VA-TOBACCO USE ADVICE [place] [facility] [place] [facility] Oct 15, 2021 01:30 PM VA-TOBACCO USE CABINETMAKER SUPERVISOR NO [facility] [place] [facility] Oct 15, 2021 01:30 PM VA-TOBACCO USE MED NO [place] [facility] [place] [facility] Oct 15, 2021 01:30 PM VA-TOBACCO USE [place] 30 MIN OF WAKEUP [place] [facility] [place] [facility] Oct 15, 2021 01:30 PM VA-TOBACCO USER EVERY DAY [facility] [place] [facility] Mar 24, 2020 03:00 PM VA-TOBACCO USE 30 YEARS OR MORE [facility] [place] [facility] Mar 24, 2020 03:00 PM VA-TOBACCO USE ADVICE [place] [facility] [place] [facility] Mar 24, 2020 03:00 PM VA-TOBACCO USE CABINETMAKER SUPERVISOR NO [place] [facility] [place] [facility] Mar 24, 2020 03:00 PM VA-TOBACCO USE MED NO [place] [facility] [place] [facility] Mar 24, 2020 03:00 PM VA-TOBACCO USE [place] 30 MIN OF WAKEUP [place] [facility] [place] [facility] Mar 24, 2020 03:00 PM VA-TOBACCO USER EVERY DAY [facility] [place] [facility] Dec 24, 2018 02:37 PM VA-TOBACCO USE > 1 5 LESS THAN 30 YEARS [facility] [place] [facility] Dec 24, 2018 02:37 PM VA-TOBACCO USE ADVICE [facility] [place] [facility] Dec 24, 2018 02:37 PM VA-TOBACCO USE CABINETMAKER SUPERVISOR NO [facility] [place] [facility] Dec 24, 2018 02:37 PM VA-TOBACCO USE MED NO [facility] [place] [facility] Dec 24, 2018 02:37 PM VA-TOBACCO USE [place] 30 MIN OF WAKEUP [place] [facility] [place] [facility] Dec 24, 2018 02:37 PM VA-TOBACCO USER EVERY DAY [place] [facility] [place] [facility] Encounter Notes: All associated encounter notes This section contains the clinical notes associated to the Encounter. Date/Time Encounter Note(s) Provider Source Sep 15, 2023 08:06 AM PRIMARY CARE TELEP [place] ENCOUNTER NOTE: LOCAL TITLE: TELEPHONE NOTE/PRIMARY CARE STANDARD TITLE: PRIMARY CARE TELEPHONE ENCOUNTER NOTE DATE OF NOTE: SEP 15, 2023@08:06 ENTRY DATE: SEP 15, 2023@08:06:10 AUTHOR: EDGAR BAL EXP COSIGNER: URGENCY: STATUS: COMPLETED MSA lm to call to r/s 12/06 PCPcc. Letter sent. /ankita/ EDGAR BAL Advanced Strainer Mill Operator Signed: 09/15/2023 08:06 EDGAR BAL [place] [facility] [place] [facility]
--- OUTSIDE RECORDS SUMMARY | 2024-07-03 03:05 | XMS_ITS ---
Author Name [facility] [place] [facility] [place] Address [address] [place] [address] Care Team Providers Care Satellite Dish Technician Name Role Phone RAN COSTELLO Primary Care [...] STAND YSABEL SELF Jul 26, 2015 104 [id number] [phone] BEN RAN Garcia PATIENT BCBS [place] FEP PREFERRED PROVIDER ORGANIZAT ION (PPO) STAND YSABEL INDIV IDUAL Jul 26, 2015 104 [id number] BEN GarciaRAN PATIENT CAREMARK FEPRX PLAN PRESCRIPT ION CAREM ARK FEPRX Jul 26, 2015 [id number] BEN RAN Garcia PATIENT CAREMARK-F EP BCBS PRESCRIPT ION FEP CAREM ARK Jul 26, 2015 [id number] BEN GarciaRAN PATIENT Selected Encounter This section includes the information on record at [place] for the Encounter. Date/Time Encounter Type Encounter Description Reason Pro vider Source Oct 13, 2023 03:11 PM Outpatient Encounter TELEPHONE IHE Encounter Template Text not used by [place] Plan of Treatment: Future Appointments (+ 6 months) and Future Tests (+/- 45 days) The Plan of Treatment section includes future care activities for the patient from all [place] [facility]. This section includes future appointments and future orders which are active, pending or scheduled. Future Appointments This section includes appointments that were scheduled to occur 6 months from the date of the Encounter, up to a maximum of 20 appointments. The data comes from all [place] treatment facilities. Appointment Date/Time Appointment Type Appointme nt Facility Name Nov 14, 2023 01:45 PM AM[place]ULATORY [place] [facility] Mar 27, 2024 11:30 AM AMBULATORY [place]ICINE [place] [facility] Social History: Smoking Status (Most current) and Tobacco Use (All prior to encounter date) This section includes the most current, and the historical, smoking and tobacco- related health factors from the [place] facility where the Encounter took place. Current Smoking Status This section includes the most current smoking, or tobacco-related health factor, from the [place] facility where the Encounter took place. Date/Time Current Smoking Status Comment Facil ity Oct 17, 2022 01:00 PM VA-TOBACCO NEVER USED [place] [facility] Tobacco Use History This section includes a history of the smoking, or tobacco-related health factors, that were collected on or before the date of the Encounter. The data comes from the [place] facility where the Encounter took place. Date/Time Smoking Status/Tobacco Use Comment F acility Oct 15, 2021 01:30 PM VA-TOBACCO USE 30 YEARS OR MORE [place] [facility] Oct 15, 2021 01:30 PM VA-TOBACCO USE ADVICE [place] [facility] Oct 15, 2021 01:30 PM VA-TOBACCO USE PATIENT INFORMATION COORDINATOR NO [facility] Oct 15, 2021 01:30 PM VA-TOBACCO USE MED NO [place] [facility] Oct 15, 2021 01:30 PM VA-TOBACCO USE [place] 30 MIN OF WAKEUP [place] [facility] Oct 15, 2021 01:30 PM VA-TOBACCO USER EVERY DAY [facility] Mar 24, 2020 03:00 PM VA-TOBACCO USE 30 YEARS OR MORE [facility] Mar 24, 2020 03:00 PM VA-TOBACCO USE ADVICE [facility] Mar 24, 2020 03:00 PM VA-TOBACCO USE PATIENT INFORMATION COORDINATOR NO [facility] Mar 24, 2020 03:00 PM VA-TOBACCO USE MED NO [facility] Mar 24, 2020 03:00 PM VA-TOBACCO USE WI 30 MIN OF WAKEUP [facility] Mar 24, 2020 03:00 PM VA-TOBACCO USER EVERY DAY [facility] Dec 24, 2018 02:37 PM VA-TOBACCO USE > 1 5 LESS THAN 30 YEARS [facility] Dec 24, 2018 02:37 PM VA-TOBACCO USE ADVICE [facility] Dec 24, 2018 02:37 PM VA-TOBACCO USE PATIENT INFORMATION COORDINATOR NO [facility] Dec 24, 2018 02:37 PM VA-TOBACCO USE MED NO [facility] Dec 24, 2018 02:37 PM VA-TOBACCO USE WI 30 MIN OF WAKEUP [facility] Dec 24, 2018 02:37 PM VA-TOBACCO USER EVERY DAY [facility] Encounter Notes: All associated encounter notes This section contains the clinical notes associated to the Encounter. Date/Time Encounter Note(s) Provider Source Oct 13, 2023 03:11 PM MENTAL HEALTH NOTE : LOCAL TITLE: [facility] CC ASSIGNMENT STANDARD TITLE: MENTAL HEALTH NOTE DATE OF NOTE: OCT 13, 2023@15:11 ENTRY DATE: OCT 13, 2023@15:13:06 AUTHOR: FUNMILAYO DILLON EXP COSIGNER: URGENCY: STATUS: COMPLETED Mental Health Acrobatic Rigger Assignment Reassignment The 's current Mental Health Acrobatic Rigger (MHTC) is: Treatment Team: ZELALEM Polanco Acrobatic Rigger: LALI FANG Office , 2825 Analog Pager: Digital Pager: This note documents the REASSIGNMENT of the [facility] Acrobatic Rigger (MHTC) on Sep. New MHTC name: MILEY Garcia, [facility] TEAM B MHTC Contact Information: [phone] This 's existing MHTC was reassigned due to: is transitioning to a new [facility] Team /es/ FUNMILAYO TRENT Signed: 10/13/2023 15:14 FUNMILAYO DILLON [place] [facility]
--- OUTSIDE RECORDS SUMMARY | 2024-07-03 03:05 | XMS_ITS ---
Author Name [facility] [place] [facility] [place] [facility] [place] Address [address] [place] [address] Care Team Providers Care Oracle Apex Developer Name Role Phone RAN COSTELLO Primary Care [...] STAND YSABEL SELF Jul 26, 2015 104 [id number] [phone] BEN RAN Garcia PATIENT BCBS [place] FEP PREFERRED PROVIDER ORGANIZAT ION (PPO) STAND YSABEL INDIV IDUAL Jul 26, 2015 104 [id number] BEN GarciaRAN PATIENT CAREMARK FEPRX PLAN PRESCRIPT ION CAREM ARK FEPRX Jul 26, 2015 [id number] BEN RAN Garcia PATIENT CAREMARK-F EP BCBS PRESCRIPT ION FEP CAREM ARK Jul 26, 2015 [id number] BEN GarciaRAN PATIENT Selected Encounter This section includes the information on record at [place] for the Encounter. Date/Time Encounter Type Encounter Description Reason Pro vider Source Sep 14, 2023 12:13 PM Outpatient Encounter COMMUNITY CARE CONSULT IHE Encounter Template Text not used by [place] Plan of Treatment: Future Appointments (+ 6 months) and Future Tests (+/- 45 days) The Plan of Treatment section includes future care activities for the patient from all [place] [facility]. This section includes future appointments and future orders which are active, pending or scheduled. Future Appointments This section includes appointments that were scheduled to occur 6 months from the date of the Encounter, up to a maximum of 20 appointments. The data comes from all [facility]. Appointment Date/Time Appointment Type Appointme nt Facility Name Nov 14, 2023 01:45 PM AMBULATORY - MEDICINE [facility] Active, Pending, and Scheduled Orders This section includes a listing of several types of active, pending, and scheduled orders, including clinic medications orders, diagnostic test orders, procedure orders and consult orders; where the start date of the order is 45 days before the date of the Encounter or 45 days after the date of theEncounter. The data comes from all [facility]. Test Date/Time Test Type Test Details Facility Name Aug 28, 2023 12:00 AM Laboratory - Chemistry Order BASIC METABOLIC PANEL (non-fasting) BLOOD (SST-SERUM) [facility] Aug 28, 2023 12:00 AM Laboratory - Chemistry Order GAMMA-GTP BLOOD (SST-SERUM) [facility] Aug 28, 2023 12:00 AM Laboratory - Chemistry Order CALCIUM BLOOD (SST-SERUM) [facility] Aug 28, 2023 12:00 AM Laboratory - Chemistry Order MAGNESIUM BLOOD (SST-SERUM) [facility] Aug 28, 2023 12:00 AM Laboratory - Chemistry Order HEMOGLOBIN A1C PANEL BLOOD (LAV-BLOOD) [facility] Aug 28, 2023 12:00 AM Laboratory - Chemistry Order CBC AND DIFF (AUTO) BLOOD (LAV-BLOOD) [facility] Aug 28, 2023 12:00 AM Laboratory - Chemistry Order TSH BLOOD (SST-SERUM) [facility] Aug 28, 2023 12:00 AM Laboratory - Chemistry Order HEPATITIS B SURFACE ANTIGEN (HBsAg)-WH BLOOD (SST-SERUM) [facility] Aug 28, 2023 12:00 AM Laboratory - Chemistry Order HEPATITIS B CORE (Total) Ab BLOOD (SST-SERUM) [facility] Aug 28, 2023 12:00 AM Laboratory - Chemistry Order HEPATITIS C ANTIBODY (HCV)-ARC BLOOD (MARBLED-TOP SERUM) [facility] Aug 28, 2023 12:00 AM Laboratory - Chemistry Order FERRITIN BLOOD (SST-SERUM) [facility] Aug 28, 2023 12:00 AM Laboratory - Chemistry Order IRON & TIBC PANEL BLOOD (SST-SERUM) [facility] Aug 28, 2023 12:00 AM Laboratory - Chemistry Order ALBUMIN BLOOD (SST-SERUM) [facility] Aug 28, 2023 12:00 AM Laboratory - Chemistry Order CRISTINA SCREEN/TITER BLOOD (SST-GOLD) SERUM SP [facility] Aug 28, 2023 12:00 AM Laboratory - Chemistry Order PROTEIN,TOTAL BLOOD (SST-SERUM) SP ONCE [facility] Aug 28, 2023 12:00 AM Laboratory - Chemistry Order ALBUMIN BLOOD (SST-SERUM) [facility] Aug 28, 2023 12:00 AM Laboratory - Chemistry Order ALKALINE PHOSPHATASE BLOOD (SST-SERUM) [facility] Aug 28, 2023 12:00 AM Laboratory - Chemistry Order AST BLOOD (SST-SERUM) [facility] Aug 28, 2023 12:00 AM Laboratory - Chemistry Order BILIRUBIN, TOTAL BLOOD (SST-SERUM) [facility] Aug 28, 2023 12:00 AM Laboratory - Chemistry Order ALT BLOOD (SST-SERUM) [facility] Aug 28, 2023 12:00 AM Laboratory - Chemistry Order URIC ACID BLOOD (SST-SERUM) [facility] Aug 28, 2023 12:00 AM Laboratory - Chemistry Order BILIRUBIN, DIRECT BLOOD (SST-SERUM) [place] [facility] [place] [facility] Aug 28, 2023 02:30 PM Laboratory - Chemistry Order PT & INR (PROTIME) BLOOD (BLUE-PLASMA) [facility] [place] [facility] [place] [facility] Social History: Smoking Status (Most current) and Tobacco Use (All prior to encounter date) This section includes the most current, and the historical, smoking and tobacco- related health factors from the [place] facility where the Encounter took place. Current Smoking Status This section includes the most current smoking, or tobacco-related health factor, from the [place] facility where the Encounter took place. Date/Time Current Smoking Status Comment Facil ity Oct 17, 2022 01:00 PM VA-TOBACCO NEVER USED [facility] Tobacco Use History This section includes a history of the smoking, or tobacco-related health factors, that were collected on or before the date of the Encounter. The data comes from the [place] facility where the Encounter took place. Date/Time Smoking Status/Tobacco Use Comment F acility Oct 15, 2021 01:30 PM VA-TOBACCO USE 30 YEARS OR MORE [place] [facility] [place] [facility] Oct 15, 2021 01:30 PM VA-TOBACCO USE ADVICE [place] [facility] [place] [facility] Oct 15, 2021 01:30 PM VA-TOBACCO USE SEWER DIGGER NO [facility] [place] [facility] Oct 15, 2021 01:30 PM VA-TOBACCO USE MED NO [place] [facility] [place] [facility] Oct 15, 2021 01:30 PM VA-TOBACCO USE WI 30 MIN OF WAKEUP [place] [facility] [place] [facility] Oct 15, 2021 01:30 PM VA-TOBACCO USER EVERY DAY [facility] [place] [facility] Mar 24, 2020 03:00 PM VA-TOBACCO USE 30 YEARS OR MORE [facility] [place] [facility] Mar 24, 2020 03:00 PM VA-TOBACCO USE ADVICE [place] [facility] [place] [facility] Mar 24, 2020 03:00 PM VA-TOBACCO USE SEWER DIGGER NO [facility] [place] [facility] Mar 24, 2020 03:00 PM VA-TOBACCO USE MED NO [facility] [place] [facility] Mar 24, 2020 03:00 PM VA-TOBACCO USE WI 30 MIN OF WAKEUP [facility] [place] [facility] Mar 24, 2020 03:00 PM VA-TOBACCO USER EVERY DAY [facility] [place] [facility] Dec 24, 2018 02:37 PM VA-TOBACCO USE > 1 5 LESS THAN 30 YEARS [facility] [place] [facility] Dec 24, 2018 02:37 PM VA-TOBACCO USE ADVICE [facility] [place] [facility] Dec 24, 2018 02:37 PM VA-TOBACCO USE SEWER DIGGER NO [facility] [place] [facility] Dec 24, 2018 02:37 PM VA-TOBACCO USE MED NO [facility] [place] [facility] Dec 24, 2018 02:37 PM VA-TOBACCO USE WI 30 MIN OF WAKEUP [facility] [place] [facility] Dec 24, 2018 02:37 PM VA-TOBACCO USER EVERY DAY [place] [facility] [place] [facility] Encounter Notes: All associated encounter notes This section contains the clinical notes associated to the Encounter. Date/Time Encounter Note(s) Provider Source Sep 14, 2023 12:13 PM NONVA NOTE: LOCAL TITLE: COMMUNITY CARE-CARE COORDINATION PLAN NOTE STANDARD TITLE: NONVA NOTE DATE OF NOTE: SEP 14, 2023@12:13 ENTRY DATE: SEP 14, 2023@12:13:57 AUTHOR: SANJU GALLEGOS EXP COSIGNER: URGENCY: STATUS: COMPLETED Community Care- Ortho General consult [phone] Requesting that provisional dx is changed to bilat hands, from current dx Ganglion, right hand. Per comments on the consult needs to see hand surgeon at [facility] for bilat hand cysts. If appropriate, please comment with approval or edit consult. Thank you /ankita/ SANJU GALLEGOS [facility] BSN RN ENDER Signed: 09/14/2023 12:17 Receipt Acknowledged By: 09/14/2023 16:21 /ankita/ RAN COSTELLO MD PHYSICIAN SANJU GALLEGOS [place] [facility]
--- OUTSIDE RECORDS SUMMARY | 2024-07-03 03:06 | XMS_ITS ---
Author Name [facility] [place] [facility] [place] [facility] [place] Address [address] [place] [address] Care Team Providers Care Helicopter Officer Name Role Phone RAN COSTELLO Primary Care [...] STAND YSABEL SELF Jul 26, 2015 104 [id number] [phone] BEN RAN Garcia PATIENT BCBS MA FEP PREFERRED PROVIDER ORGANIZAT ION (PPO) STAND YSABEL INDIV IDUAL Jul 26, 2015 104 [id number] BEN GarciaRAN PATIENT CAREMARK FEPRX PLAN PRESCRIPT ION CAREM ARK FEPRX Jul 26, 2015 [id number] BEN RAN Garcia PATIENT CAREMARK-F EP BCBS PRESCRIPT ION FEP CAREM ARK Jul 26, 2015 [id number] BEN GarciaRAN PATIENT Selected Encounter This section includes the information on record at [place] for the Encounter. Date/Time Encounter Type Encounter Description Reason Pro vider Source November 21, 2023 10:16 AM Outpatient Encounter COMMUNITY CARE CONSULT IHE Encounter Template Text not used by [place] Plan of Treatment: Future Appointments (+ 6 months) and Future Tests (+/- 45 days) The Plan of Treatment section includes future care activities for the patient from all [place] [facility] This section includes future appointments and future orders which are active, pending or scheduled. Future Appointments This section includes appointments that were scheduled to occur 6 months from the date of the Encounter, up to a maximum of 20 appointments. The data comes from all [place] treatment facilities. Appointment Date/Time Appointment Type Appointme nt Facility Name Mar 27, 2024 11:30 AM AMBULATORY [place] [facility]ICINE [place] [facility] Social History: Smoking Status (Most current) and Tobacco Use (All prior to encounter date) This section includes the most current, and the historical, smoking and tobacco- related health factors from the [place] facility where the Encounter took place. Current Smoking Status This section includes the most current smoking, or tobacco-related health factor, from the [place] facility where the Encounter took place. Date/Time Current Smoking Status Comment Facil ity Oct 17, 2022 01:00 PM VA-TOBACCO NEVER USED [place] [facility] Tobacco Use History This section includes a history of the smoking, or tobacco-related health factors, that were collected on or before the date of the Encounter. The data comes from the [place] facility where the Encounter took place. Date/Time Smoking Status/Tobacco Use Comment F acility Oct 15, 2021 01:30 PM VA-TOBACCO USE 30 YEARS OR MORE [place] [facility] [place] [facility] Oct 15, 2021 01:30 PM VA-TOBACCO USE ADVICE [place] [facility] [place] [facility] Oct 15, 2021 01:30 PM VA-TOBACCO USE ADULT DAYCARE COORDINATOR NO [facility] [place] [facility] Oct 15, 2021 01:30 PM VA-TOBACCO USE MED NO [place] [facility] [place] [facility] Oct 15, 2021 01:30 PM VA-TOBACCO USE WI 30 MIN OF WAKEUP [place] [facility] [place] [facility] Oct 15, 2021 01:30 PM VA-TOBACCO USER EVERY DAY [place] [facility] [place] [facility] Mar 24, 2020 03:00 PM VA-TOBACCO USE 30 YEARS OR MORE [place] [facility] [place] [facility] Mar 24, 2020 03:00 PM VA-TOBACCO USE ADVICE [facility] [place] [facility] Mar 24, 2020 03:00 PM VA-TOBACCO USE ADULT DAYCARE COORDINATOR NO [facility] [place] [facility] Mar 24, 2020 03:00 PM VA-TOBACCO USE MED NO [facility] [place] [facility] Mar 24, 2020 03:00 PM VA-TOBACCO USE WI 30 MIN OF WAKEUP [facility] [place] [facility] Mar 24, 2020 03:00 PM VA-TOBACCO USER EVERY DAY [facility] [place] [facility] Dec 24, 2018 02:37 PM VA-TOBACCO USE > 1 5 LESS THAN 30 YEARS [facility] [place] [facility] Dec 24, 2018 02:37 PM VA-TOBACCO USE ADVICE [facility] [place] [facility] Dec 24, 2018 02:37 PM VA-TOBACCO USE ADULT DAYCARE COORDINATOR NO [facility] [place] [facility] Dec 24, 2018 02:37 PM VA-TOBACCO USE MED NO [facility] [place] [facility] Dec 24, 2018 02:37 PM VA-TOBACCO USE WI 30 MIN OF WAKEUP [facility] [place] [facility] Dec 24, 2018 02:37 PM VA-TOBACCO USER EVERY DAY [facility] [place] [facility] Encounter Notes: All associated encounter notes This section contains the clinical notes associated to the Encounter. Date/Time Encounter Note(s) Provider Source November 21, 2023 10:16 AM NONVA NOTE: LOCAL TITLE: [facility] CARE COORD PLAN STANDARD TITLE: NONVA NOTE DATE OF NOTE: NOVEMBER 21, 2023@10:16 ENTRY DATE: NOVEMBER 21, 2023@10:16:23 AUTHOR: ALISA NICHOLSON COSIGNER: URGENCY: STATUS: COMPLETED Emergency Notification Intake Date Presenting to the Facility: Oct Method of Contact: Notified from [facility] worklist Notification ID: [id number] [facility] Referral #: [id number] [facility] Name: Hospital: [facility] Address: City: [place] State: [place] Zip Code: Phone : Community Facility Point of Contact: Name: [place] Phone: Chief complaint: FOOT PAIN, GROWTH ON LEFT HEEL CAUSING PAIN Primary Diagnosis: Disposition Discharged Date of discharge: Oct Discharge to Comment: ER Only /es/ ALISA NICHOLSON AMSA Signed: 11/21/2023 10:17 Receipt Acknowledged By: 11/21/2023 10:51 /es/ RAN COSTELLO MD PHYSICIAN 11/21/2023 10:22 /es/ Ariadne Tejada MSN,RN,[facility] TRANSFER/TRAVELING COORDINATOR 11/21/2023 10:39 /es/ SHERRIE MONK, MSN, RN, CNL PRIMARY CARE TEAM NURSE 11/21/2023 10:21 /es/ Adrianna Schmitz, toll booth operator Staff Nurse ALISA NICHOLSON [place]
--- OUTSIDE RECORDS SUMMARY | 2024-07-03 03:06 | XMS_ITS ---
Author Name [facility] Organization [facility] [place] Address [address] [place] [address] Care Team Providers Care Welt Insole Channeler Name Role Phone RAN COSTELLO Primary Care [...] STAND YSABEL SELF Jul 26, 2015 104 [id number] [phone] BEN RAN Garcia PATIENT BCBS [place] FEP PREFERRED PROVIDER ORGANIZAT ION (PPO) STAND YSABEL INDIV IDUAL Jul 26, 2015 104 [id number] BEN GarciaRAN PATIENT CAREMARK FEPRX PLAN PRESCRIPT ION CAREM ARK FEPRX Jul 26, 2015 [id number] BEN GarciaRAN PATIENT CAREMARK-F EP BCBS PRESCRIPT ION FEP CAREM ARK Jul 26, 2015 [id number] BEN GarciaRAN PATIENT Selected Encounter This section includes the information on record at [place] for the Encounter. Date/Time Encounter Type Encounter Description Reason Pro vider Source Nov 14, 2023 12:00 AM Outpatient Encounter COMMUNITY CARE CONSULT IHE Encounter Template Text not used by [place] Plan of Treatment: Future Appointments (+ 6 months) and Future Tests (+/- 45 days) The Plan of Treatment section includes future care activities for the patient from all [place] [facility] This section includes future appointments and future orders which are active, pending or scheduled. Future Appointments This section includes appointments that were scheduled to occur 6 months from the date of the Encounter, up to a maximum of 20 appointments. The data comes from all [place] treatment facilities. Appointment Date/Time Appointment Type Appointme nt Facility Name Mar 27, 2024 11:30 AM AMBULATORY - MEDICINE [place] [facility] Social History: Smoking Status (Most current) and Tobacco Use (All prior to encounter date) This section includes the most current, and the historical, smoking and tobacco- related health factors from the [place] facility where the Encounter took place. Current Smoking Status This section includes the most current smoking, or tobacco-related health factor, from the [place] facility where the Encounter took place. Date/Time Current Smoking Status Comment Facil ity Oct 17, 2022 01:00 PM VA-TOBACCO NEVER USED [place] [facility] Tobacco Use History This section includes a history of the smoking, or tobacco-related health factors, that were collected on or before the date of the Encounter. The data comes from the [place] facility where the Encounter took place. Date/Time Smoking Status/Tobacco Use Comment F acility Oct 15, 2021 01:30 PM VA-TOBACCO USE 30 YEARS OR MORE [place] [facility] [place] [facility] Oct 15, 2021 01:30 PM VA-TOBACCO USE ADVICE [place] [facility] [place] [facility] Oct 15, 2021 01:30 PM VA-TOBACCO USE HORSESHOER NO VA [facility] [place] [facility] Oct 15, 2021 01:30 PM VA-TOBACCO USE MED NO [place] [facility] [place] [facility] Oct 15, 2021 01:30 PM VA-TOBACCO USE WI 30 MIN OF WAKEUP SD [facility] [place] [facility] Oct 15, 2021 01:30 PM VA-TOBACCO USER EVERY DAY SD [facility] [place] [facility] Mar 24, 2020 03:00 PM VA-TOBACCO USE 30 YEARS OR MORE SD [facility] [place] [facility] Mar 24, 2020 03:00 PM VA-TOBACCO USE ADVICE VA [facility] [place] [facility] Mar 24, 2020 03:00 PM VA-TOBACCO USE HORSESHOER NO VA [facility] [place] [facility] Mar 24, 2020 03:00 PM VA-TOBACCO USE MED NO VA [facility] [place] [facility] Mar 24, 2020 03:00 PM VA-TOBACCO USE WI 30 MIN OF WAKEUP VA [facility] [place] [facility] Mar 24, 2020 03:00 PM VA-TOBACCO USER EVERY DAY VA [facility] [place] [facility] Dec 24, 2018 02:37 PM VA-TOBACCO USE > 1 5 LESS THAN 30 YEARS VA [facility] [place] [facility] Dec 24, 2018 02:37 PM VA-TOBACCO USE ADVICE VA [facility] [place] [facility] Dec 24, 2018 02:37 PM VA-TOBACCO USE HORSESHOER NO VA [facility] [place] [facility] Dec 24, 2018 02:37 PM VA-TOBACCO USE MED NO VA [facility] [place] [facility] Dec 24, 2018 02:37 PM VA-TOBACCO USE WI 30 MIN OF WAKEUP VA [facility] [place] [facility] Dec 24, 2018 02:37 PM VA-TOBACCO USER EVERY DAY VA [facility] [place] [facility] Encounter Notes: All associated encounter notes This section contains the clinical notes associated to the Encounter. Date/Time Encounter Note(s) Provider Source Nov 14, 2023 12:00 AM NONVA CONSULT: LOCAL TITLE: COMMUNITY CARE-CONSULT RESULT NOTE STANDARD TITLE: NONVA CONSULT DATE OF NOTE: NOV 14, 2023 ENTRY DATE: FEB 03, 2024@09:08:23 AUTHOR: JAMAL MOSELEY EXP COSIGNER: URGENCY: STATUS: COMPLETED VistA Imaging - Scanned Document SCANNED DOCUMENT SIGNATURE NOT REQUIRED Electronically Filed: 02/03/2024 by: JAMAL JUÁREZ [place] [facility]
--- OUTSIDE RECORDS SUMMARY | 2024-07-03 03:06 | XMS_ITS | Encounter Summary ---
Author Name [facility] [place] [facility] [place] [facility] [place] Address [address] [place] [address] Care Team Providers Care Polish Maker Name Role Phone RAN COSTELLO Primary Care [...] STAND YSABEL SELF Jul 26, 2015 104 [id number] [phone] BEN RAN Garcia PATIENT BCBS [place] FEP PREFERRED PROVIDER ORGANIZAT ION (PPO) STAND YSABEL INDIV IDUAL Jul 26, 2015 104 [id number] BEN GarciaRAN PATIENT CAREMARK FEPRX PLAN PRESCRIPT ION CAREM ARK FEPRX Jul 26, 2015 [id number] BEN GarciaRAN PATIENT CAREMARK-F EP BCBS PRESCRIPT ION FEP CAREM ARK Jul 26, 2015 [id number] 16 BEN GarciaRAN PATIENT Selected Encounter This section includes the information on record at [place] for the Encounter. Date/Time Encounter Type Encounter Description Reason Provider Source Oct 31, 2023 11:34 AM Outpatient Encounter TELEPHONE TRIAGE ADRIANA PORTILLO Karina Encounter Template Text not used by [place] Plan of Treatment: Future Appointments (+ 6 months) and Future Tests (+/- 45 days) The Plan of Treatment section includes future care activities for the patient from all [place] [facility]. This section includes future appointments and future orders which are active, pending or scheduled. Future Appointments This section includes appointments that were scheduled to occur 6 months from the date of the Encounter, up to a maximum of 20 appointments. The data comes from all [place] treatment facilities. Appointment Date/Time Appointment Type Appointme nt Facility Name Nov 14, 2023 01:45 PM AMBULATORY - MEDICINE [place] [facility] [place] [facility] Mar 27, 2024 11:30 AM AMBULATORY - MEDICINE [place] C [facility] [place] [facility] Social History: Smoking Status (Most current) and Tobacco Use (All prior to encounter date) This section includes the most current, and the historical, smoking and tobacco- related health factors from the [place] facility where the Encounter took place. Current Smoking Status This section includes the most current smoking, or tobacco-related health factor, from the [place] facility where the Encounter took place. Date/Time Current Smoking Status Comment Facil ity Oct 17, 2022 01:00 PM VA-TOBACCO NEVER USED [place] [facility] Tobacco Use History This section includes a history of the smoking, or tobacco-related health factors, that were collected on or before the date of the Encounter. The data comes from the [place] facility where the Encounter took place. Date/Time Smoking Status/Tobacco Use Comment F acility Oct 15, 2021 01:30 PM VA-TOBACCO USE 30 YEARS OR MORE VA [facility] [place] [facility] Oct 15, 2021 01:30 PM VA-TOBACCO USE ADVICE VA [facility] [place] [facility] Oct 15, 2021 01:30 PM VA-TOBACCO USE PLATFORM STAPLER NO VA [facility] [place] [facility] Oct 15, 2021 01:30 PM VA-TOBACCO USE MED NO VA [facility] [place] [facility] Oct 15, 2021 01:30 PM VA-TOBACCO USE WI 30 MIN OF WAKEUP [place] [facility] [place] [facility] Oct 15, 2021 01:30 PM VA-TOBACCO USER EVERY DAY VA [facility] [place] [facility] Mar 24, 2020 03:00 PM VA-TOBACCO USE 30 YEARS OR MORE VA [facility] [place] [facility] Mar 24, 2020 03:00 PM VA-TOBACCO USE ADVICE VA [facility] [place] [facility] Mar 24, 2020 03:00 PM VA-TOBACCO USE PLATFORM STAPLER NO VA [facility] [place] [facility] Mar 24, 2020 03:00 PM VA-TOBACCO USE MED NO VA [facility] [place] [facility] Mar 24, 2020 03:00 PM VA-TOBACCO USE WI 30 MIN OF WAKEUP VA [facility] [place] [facility] Mar 24, 2020 03:00 PM VA-TOBACCO USER EVERY DAY VA [facility] [place] [facility] Dec 24, 2018 02:37 PM VA-TOBACCO USE > 1 5 LESS THAN 30 YEARS VA [facility] [place] [facility] Dec 24, 2018 02:37 PM VA-TOBACCO USE ADVICE VA [facility] [place] [facility] Dec 24, 2018 02:37 PM VA-TOBACCO USE PLATFORM STAPLER NO VA [facility] [place] [facility] Dec 24, 2018 02:37 PM VA-TOBACCO USE MED NO VA [facility] [place] [facility] Dec 24, 2018 02:37 PM VA-TOBACCO USE WI 30 MIN OF WAKEUP VA [facility] [place] [facility] Dec 24, 2018 02:37 PM VA-TOBACCO USER EVERY DAY VA [facility] [place] [facility] Encounter Notes: All associated encounter notes This section contains the clinical notes associated to the Encounter. Date/Time Encounter Note(s) Provider Source Oct 31, 2023 11:48 AM ADDENDUM: LOCAL TITLE: Addendum STANDARD TITLE: ADDENDUM DATE OF NOTE: OCT 31, 2023@11:48:09 ENTRY DATE: OCT 31, 2023@11:48:10 AUTHOR: ADRIANNA BOLAND EXP COSIGNER: URGENCY: STATUS: COMPLETED Please offer PCP appt this week if available. Vet was triaged to go to ER but he may prefer PCP appt instead /ankita/ Adrianna Boland RN Primary Care Staff Nurse Signed: 10/31/2023 11:50 Receipt Acknowledged By: 10/31/2023 11:54 /ankita/ MUKNUD ACEVEDO AMSA === --- Original Document --- 10/31/23 CCC: CLINICAL TRIAGE: Patient Demographics Patient Name: RAN HOLLINGSWORTH Patient Primary Address: [address] [place] [id number] Patient Primary Phone: [phone] Patient : 1970 Patient Age: 53 Caller/Recipient Relation to Patient: Self Emergency Contact: ONE NO Triage Summary Chief Complaint: Heel Pain System WHEN: Now Nurse's Recommendation / WHEN: Now System WHERE: Emergency department Nurse's Recommendation / WHERE[facility] Patient Disposition Patient/Caregiver agrees to plan of care: Yes Nursing Plan and Disposition Referred patient to higher level of care Instructed to go to Emergency Room (ER) Advised of Financial Disclaimer: Patient advised that recommendation for care provided during the call does not constitute an approval or authorization for payment by the [place] or its staff. Patient advised to report a community ED visit to the [facility] Office of Community Care at within 72 hours. Other course(s) of action Generated msg to PACT/Provider Provided guidance for worsening symptoms: *Caller/Patient* advised to call facilities [place] Clinical Contact Center or seek immediate medical attention for new or worsening symptoms Nurse Summary Nurse Summary: calls reporting a growth the size of a avelina on left heel that he feels is gout related. [place] notes he can barely put his shoe on of apply weight. +8/10 Pain +Swelling +Redness [place] states that he has taken his colchicine, but feels it wasn't quick enough. Triaged. This RN recommends ER evaluation. [facility] Financial disclaimer reviewed and #[id number] provided with instructions to call within 72 hours of registration. PACT post ER follow-up call back requested for further guided plan of care. Verified Ph. [phone] Clinical Contact Center Codes Clinic/Location: V1 CWM PHONE CCC RN TXCC Triage Complete Triage Date: 10/31/2023 10:27 AM Triage Note: Phone Triage 31 Oct 2023 15:26:38 +0000 [facility] Demographics 53 y/o Male Results CC: Heel Pain Software suggested: Now Software suggested follow-up location: Emergency department Values and Measures Duration of CC: 2 Days Positive Responses HPI: heel erythema, worsening HPI: heel pain, severe HPI: skin lump, swollen, painful, over the heel VS: temperature not taken Negative Responses Denies: HPI: foot injury, within past 2 days /ankita/ ADRIANA PORTILLO [id number] Signed: 10/31/2023 11:34 Receipt Acknowledged By: * AWAITING SIGNATURE * SHERRIE MONK 10/31/2023 11:46 /es/ Adrianna Boland windows systems architect Staff Nurse 10/31/2023 ADDENDUM STATUS: UNSIGNED You may not VIEW this UNSIGNED Addendum. ADRIANNA BOLAND [facility] [place] [facility] Oct 31, 2023 11:34 AM RN PROGRESS NOTE: LOCAL TITLE: CCC: CLINICAL TRIAGE STANDARD TITLE: RN PROGRESS NOTE DATE OF NOTE: OCT 31, 2023@11:34:34 ENTRY DATE: OCT 31, 2023@11:34:34 AUTHOR: ADRIANA PORTILLO EXP COSIGNER: URGENCY: STATUS: COMPLETED CCC: CLINICAL TRIAGE Has ADDENDA Patient Demographics Patient Name: RAN HOLLINGSWORTH Patient Primary Address: [address] [place] [id number] Patient Primary Phone: [phone] Patient : 1970 Patient Age: 53 Caller/Recipient Relation to Patient: Self Emergency Contact: ONE NO Triage Summary Chief Complaint: Heel Pain System WHEN: Now Nurse's Recommendation / WHEN: Now System WHERE: Emergency department Nurse's Recommendation / WHERE: [facility] Patient Disposition Patient/Caregiver agrees to plan of care: Yes Nursing Plan and Disposition Referred patient to higher level of care Instructed to go to Emergency Room (ER) Advised of Financial Disclaimer: Patient advised that recommendation for care provided during the call does not constitute an approval or authorization for payment by the [place] or its staff. Patient advised to report a community ED visit to the [facility] Office of Community Care at within 72 hours. Other course(s) of action Generated msg to PACT/Provider Provided guidance for worsening symptoms: *Caller/Patient* advised to call facilities [place] Clinical Contact Center or seek immediate medical attention for new or worsening symptoms Nurse Summary Nurse Summary: calls reporting a growth the size of a avelina on left heel that he feels is gout related. [place] notes he can barely put his shoe on of apply weight. +8/10 Pain +Swelling +Redness [place] states that he has taken his colchicine, but feels it wasn't quick enough. Triaged. This RN recommends ER evaluation. [facility] Financial disclaimer reviewed and #[id number] provided with instructions to call within 72 hours of registration. PACT post ER follow-up call back requested for further guided plan of care. Verified Ph. [phone] Clinical Contact Center Codes Clinic/Location: V1 CWM PHONE CCC RN TXCC Triage Complete Triage Date: 10/31/2023 10:27 AM Triage Note: Phone Triage 31 Oct 2023 15:26:38 +0000 [facility] Demographics 53 y/o Male Results CC: Heel Pain Software suggested: Now Software suggested follow-up location: Emergency department Values and Measures Duration of CC: 2 Days Positive Responses HPI: heel erythema, worsening HPI: heel pain, severe HPI: skin lump, swollen, painful, over the heel VS: temperature not taken Negative Responses Denies: HPI: foot injury, within past 2 days /ankita/ ADRIANA BOND BANDAR [id number] Signed: 10/31/2023 11:34 Receipt Acknowledged By: 10/31/2023 11:55 /ankita/ MALISSA NEGRON, RN, CNL PRIMARY CARE TEAM NURSE 10/31/2023 11:46 /ankita/ Adrianna Boland RN Primary Care Staff Nurse 10/31/2023 ADDENDUM STATUS: COMPLETED Please offer PCP appt this week if available. Vet was triaged to go to ER but he may prefer PCP appt instead /ankita/ Adrianna Boland RN Primary Care Staff Nurse Signed: 10/31/2023 11:50 Receipt Acknowledged By: 10/31/2023 11:54 /mohini COSTA 10/31/2023 ADDENDUM STATUS: COMPLETED IGOR spoke with [place]. agreed with advice of triage nurse and is on his way to the ED. /mohini COSTA Signed: 10/31/2023 11:54 ADRIANA PORTILLO [facility]
--- OUTSIDE RECORDS SUMMARY | 2024-07-03 03:06 | XMS_ITS ---
Author Name [facility] [facility] [place] Address [address] [place] [address] Care Team Providers Care Flatbed Truck Driver Name Role Phone RAN COSTELLO Primary Care [...] STAND YSABEL SELF Jul 26, 2015 104 [id number] [phone] BEN RAN Garcia PATIENT BCBS [place] FEP PREFERRED PROVIDER ORGANIZAT ION (PPO) STAND YSABEL INDIV IDUAL Jul 26, 2015 104 [id number] BEN RAN Garcia PATIENT CAREMARK FEPRX PLAN PRESCRIPT ION CAREM ARK FEPRX Jul 26, 2015 [id number] BEN RAN Garcia PATIENT CAREMARK-F EP BCBS PRESCRIPT ION FEP CAREM ARK Jul 26, 2015 [id number] BEN GarciaRAN PATIENT Selected Encounter This section includes the information on record at [place] for the Encounter. Date/Time Encounter Type Encounter Description Reason Pro vider Source November 28, 2023 08:59 AM Outpatient Encounter ADMIN PAT ACTIVTIES (MASNONCT) IHE Encounter Template Text not used by [place] Plan of Treatment: Future Appointments (+ 6 months) and Future Tests (+/- 45 days) The Plan of Treatment section includes future care activities for the patient from all [place] [facility]. This section includes future appointments and future orders which are active, pending or scheduled. Future Appointments This section includes appointments that were scheduled to occur 6 months from the date of the Encounter, up to a maximum of 20 appointments. The data comes from all [place] treatment facilities. Appointment Date/Time Appointment Type Appointme nt Facility Name Mar 27, 2024 11:30 AM AMBULATORY - MEDICINE [place] [facility] [place] [facility] Social History: Smoking Status (Most current) and Tobacco Use (All prior to encounter date) This section includes the most current, and the historical, smoking and tobacco- related health factors from the [place] facility where the Encounter took place. Current Smoking Status This section includes the most current smoking, or tobacco-related health factor, from the [place] facility where the Encounter took place. Date/Time Current Smoking Status Comment Facil ity Oct 17, 2022 01:00 PM VA-TOBACCO NEVER USED [place] [facility] Tobacco Use History This section includes a history of the smoking, or tobacco-related health factors, that were collected on or before the date of the Encounter. The data comes from the [place] facility where the Encounter took place. Date/Time Smoking Status/Tobacco Use Comment F acility Oct 15, 2021 01:30 PM VA-TOBACCO USE 30 YEARS OR MORE [place] [facility] [place] [facility] Oct 15, 2021 01:30 PM VA-TOBACCO USE ADVICE [place] [facility] [place] [facility] Oct 15, 2021 01:30 PM VA-TOBACCO USE COMMUNITY SERVICES MANAGER NO [facility] [place] [facility] Oct 15, 2021 01:30 PM VA-TOBACCO USE MED NO [place] [facility] [place] [facility] Oct 15, 2021 01:30 PM VA-TOBACCO USE WI 30 MIN OF WAKEUP [place] [facility] [facility] Oct 15, 2021 01:30 PM VA-TOBACCO USER EVERY DAY [place] [facility] [place] [facility] Mar 24, 2020 03:00 PM VA-TOBACCO USE 30 YEARS OR MORE [place] [facility] [facility] Mar 24, 2020 03:00 PM VA-TOBACCO USE ADVICE [facility] [facility] Mar 24, 2020 03:00 PM VA-TOBACCO USE COMMUNITY SERVICES MANAGER NO [facility] [facility] Mar 24, 2020 03:00 PM VA-TOBACCO USE MED NO [place] [facility] [facility] Mar 24, 2020 03:00 PM VA-TOBACCO USE WI 30 MIN OF WAKEUP [facility] [facility] Mar 24, 2020 03:00 PM VA-TOBACCO USER EVERY DAY [facility] [facility] Dec 24, 2018 02:37 PM VA-TOBACCO USE > 1 5 LESS THAN 30 YEARS [facility] [facility] Dec 24, 2018 02:37 PM VA-TOBACCO USE ADVICE [facility] [facility] Dec 24, 2018 02:37 PM VA-TOBACCO USE COMMUNITY SERVICES MANAGER NO [facility] [place] [facility] Dec 24, 2018 02:37 PM VA-TOBACCO USE MED NO [place] [facility] [facility] Dec 24, 2018 02:37 PM VA-TOBACCO USE WI 30 MIN OF WAKEUP [facility] [place] [facility] Dec 24, 2018 02:37 PM VA-TOBACCO USER EVERY DAY [facility] [facility] Encounter Notes: All associated encounter notes This section contains the clinical notes associated to the Encounter. Date/Time Encounter Note(s) Provider Source November 28, 2023 09:37 AM ADDENDUM: LOCAL TITLE: Addendum STANDARD TITLE: ADDENDUM DATE OF NOTE: NOVEMBER 28, 2023@09:37:28 ENTRY DATE: NOVEMBER 28, 2023@09:37:29 AUTHOR: ADRIANNA BOLAND EXP COSIGNER: URGENCY: STATUS: COMPLETED Vet Went to [facility] ER on 10/30. Please see MD/Outside Consult note for ER report. Vet was referred to Shyam Duran MD /ankita/ Adrianna Boland, judicial registrar Staff Nurse Signed: 11/28/2023 09:38 Receipt Acknowledged By: 11/28/2023 16:18 /ankita/ RAN COSTELLO MD PHYSICIAN === --- Original Document --- 11/28/23 CCC: SCHEDULING ADMINISTRATION: Patient Demographics Patient Name: RAN HOLLINGSWORTH Patient Primary Phone: [phone] Patient Primary Address: [place] [address] Patient : 1970 Patient Age: 53 Caller/Recipient Relation to Patient: Self Scheduling Cannot Complete Scheduling Action Reason: Restricted / Unavailable Clinic Requested Service(s): Primary Care Patient Expects Callback: Yes Scheduling Note Reason: Cannot Complete Appointment Request Scheduling Note Comments: Weed called stating that he has been having issues with his foot and he went to the ER and they didn't do anything for him. They advised that he be seen by primary care. This conventional underwriter does not have access to schedule into his providers clinic. Weed is requesting a call back dylan and can be reached back at . Open Request: RTC (Return to Clinic Order) /ankita/ KARRI SINGLETON [id number] Signed: 11/28/2023 08:59 Receipt Acknowledged By: 11/28/2023 09:59 /es/ SHERRIE MONK, MALISSA, RN, CNL PRIMARY CARE TEAM NURSE 11/28/2023 09:38 /ankita/ Adrianna Boland RN Primary Care Staff Nurse ADRIANNA BOLAND [facility] November 28, 2023 08:59 AM ADMINISTRATIVE NOT E: LOCAL TITLE: CCC: SCHEDULING ADMINISTRATION STANDARD TITLE: ADMINISTRATIVE NOTE DATE OF NOTE: NOVEMBER 28, 2023@08:59:05 ENTRY DATE: NOVEMBER 28, 2023@08:59:05 AUTHOR: KARRI SINGLETON COSIGNER: URGENCY: STATUS: COMPLETED CCC: SCHEDULING ADMINISTRATION Has ADDENDA Patient Demographics Patient Name: RAN HOLLINGSWORTH Patient Primary Phone: [phone] Patient Primary [address] [place] [place] [address] Patient : 1970 Patient Age: 53 Caller/Recipient Relation to Patient: Self Scheduling Cannot Complete Scheduling Action Reason: Restricted / Unavailable Clinic Requested Service(s): Primary Care Patient Expects Callback: Yes Scheduling Note Reason: Cannot Complete Appointment Request Scheduling Note Comments: called stating that he has been having issues with his foot and he went to the ER and they didn't do anything for him. They advised that he be seen by primary care. This conventional underwriter does not have access to schedule into his providers clinic. [facility] is [place] [facility] [place] can be reached back at . Open Request: RTC (Return to Clinic Order) /ankita/ KARRI SINGLETON [id number] Signed: 11/28/2023 08:59 Receipt Acknowledged By: 11/28/2023 09:59 /ankita/ SHERRIE MONK, MALISSA, RN, CNL PRIMARY CARE TEAM NURSE 11/28/2023 09:38 /ankita/ Adrianna Boland RN Primary Care Staff Nurse 11/28/2023 ADDENDUM STATUS: COMPLETED Vet Went to [facility] ER on 10/30. Please see MD/Outside Consult note for ER report. Vet was referred to Shyam Duran MD /ankita/ Adrianna Boland RN Primary Care Staff Nurse Signed: 11/28/2023 09:38 Receipt Acknowledged By: * AWAITING SIGNATURE * RAN COSTELLO NAKITA R [place] [facility]
--- OUTSIDE RECORDS SUMMARY | 2024-07-03 03:06 | XMS_ITS ---
Author Name [facility] [place] [facility] [place] [place] Address [address] [place] [address] Care Team Providers Care Student Services Coordinator Name Role Phone RAN COSTELLO Primary Care [...] STAND YSABEL SELF Jul 26, 2015 104 [id number] [phone] BEN RAN Garcia PATIENT BCBS [place] FEP PREFERRED PROVIDER ORGANIZAT ION (PPO) STAND YSABEL INDIV IDUAL Jul 26, 2015 104 [id number] BEN RAN Garcia PATIENT [employer] FEPRX PLAN PRESCRIPT ION CAREM ARK FEPRX Jul 26, 2015 [id number] BEN RAN Garcia PATIENT [employer]ARK-F EP BCBS PRESCRIPT ION FEP CAREM ARK Jul 26, 2015 [id number] 16 BEN GarciaRAN PATIENT Selected Encounter This section includes the information on record at [place] for the Encounter. Date/Time Encounter Type Encounter Description Reason Pro vider Source November 28, 2023 09:35 AM Outpatient Encounter PRIMARY CARE/MEDICINE IHE Encounter Template Text not used by [place] Plan of Treatment: Future Appointments (+ 6 months) and Future Tests (+/- 45 days) The Plan of Treatment section includes future care activities for the patient [facility] all [place] [facility]. This section includes future appointments and future orders which are active, pending or scheduled. Future Appointments This section includes appointments that were scheduled to occur 6 months from the date of the Encounter, up to a maximum of 20 appointments. The data comes from all [place] treatment facilities. Appointment Date/Time Appointment Type Appointme nt Facility Name Mar 27, 2024 11:30 AM AMBULATORY - MEDICINE [facility] Social History: Smoking Status (Most current) and Tobacco Use (All prior to encounter date) This section includes the most current, and the historical, smoking and tobacco- related health factors from the [place] facility where the Encounter took place. Current Smoking Status This section includes the most current smoking, or tobacco-related health factor, from the [place] facility where the Encounter took place. Date/Time Current Smoking Status Comment Facil ity Oct 17, 2022 01:00 PM VA-TOBACCO NEVER USED [place] [facility] Tobacco Use History This section includes a history of the smoking, or tobacco-related health factors, that were collected on or before the date of the Encounter. The data comes from the [place] facility where the Encounter took place. 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 [facility] [place] [facility] Oct 15, 2021 01:30 PM VA-TOBACCO USE MED NO [place] [facility] [place] [facility] Oct 15, 2021 01:30 PM VA-TOBACCO USE WI 30 MIN OF WAKEUP [place] [facility] [place] [facility] Oct 15, 2021 01:30 PM VA-TOBACCO USER EVERY DAY [place] [facility] [place] [facility] Mar 24, 2020 03:00 PM VA-TOBACCO USE 30 YEARS OR MORE [place] [facility] [place] [facility] Mar 24, 2020 03:00 PM VA-TOBACCO USE ADVICE [facility] [place] [facility] Mar 24, 2020 03:00 PM VA-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 [facility] [place] [facility] Mar 24, 2020 03:00 PM VA-TOBACCO USE MED NO VA [facility] [place] [facility] Mar 24, 2020 03:00 PM VA-TOBACCO USE WI 30 MIN OF WAKEUP [facility] [place] [facility] Mar 24, 2020 03:00 PM VA-TOBACCO USER EVERY DAY [facility] [place] [facility] Dec 24, 2018 02:37 PM VA-TOBACCO USE > 1 5 LESS THAN 30 YEARS [facility] [place] [facility] Dec 24, 2018 02:37 PM VA-TOBACCO USE ADVICE VA [facility] [place] [facility] Dec 24, 2018 02:37 PM VA-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 Date/Time Encounter Note(s) Provider Source November 28, 2023 09:35 AM NONVA CONSULT: LOCAL TITLE: MD/OUTSIDE CONSULT REPORT SUMMARY STANDARD TITLE: NONVA CONSULT DATE OF NOTE: NOVEMBER 28, 2023@09:35 ENTRY DATE: NOVEMBER 28, 2023@09:35:52 AUTHOR: ADRIANNA BOLAND COSIGNER: URGENCY: STATUS: COMPLETED From [facility] ER Visit Note Result type:Emergency Medicine NoteResult date:10/31/2023 14:32 Foot pain-swelling Patient: RAN HOLLINGSWORTH Age: 53 years Sex: Male : 1970 Associated Diagnoses: None Author: Víctor Negron MD Basic Information Time seen: Date 10/31/2023, Immediately upon arrival. History source: Patient. Arrival mode: Private vehicle. History limitation: None. Additional information: Patient's physician(s): 53-year-old male with history of gout who presents to the emergency department due to left heel pain. He reports a small blister to the medial aspect of his left heel which acutely worsened over the past several days. It is exquisitely tender to palpation and minimal at rest. Limiting ambulation. He denies any known puncture wounds. Denies systemic symptoms including fevers or chills. Denies pain with range of motion at the ankle. Took a dose of colchicine 2 days ago without improvement in his symptoms.. Health Status Allergies: Allergic Reactions (Selected) NKA. Medications: Cephalexin (cephalexin monohydrate 500 mg oral capsule) 1 capsule 500 Milligram By Mouth 4 times a day for 7 Days Colchicine (colchicine 0.6 mg oral capsule) 1 capsule 0.6 Milligram By Mouth Naproxen (Aleve) By Mouth . Past Medical/ Family/ Social History Medical history: Per HPI. Social history: Prescription Given this visit:No new prescriptions during this visit. Patient Instructions Given:No qualifying data available Education Given: Patient Follow-up:. Problem list: Active Problems (6) Anxiety Cervical radiculopathy Depression Hepatic fibrosis Insomnia Obstructive sleep apnea . Physical Examination Vital Signs VITAL SIGNS SECTION 10/31/2023 12:12 EDT Temperature 98.0 DegF Temperature Route Temporal Pulse Rate 94 bpm H Respiratory Rate 18 br/min Systolic Blood Pressure 135 mm Hg Diastolic Blood Pressure 86 mm Hg H Blood pressure sites Arm, right Mean Arterial Pressure 102 mm Hg Pulse Pressure 49 mm Hg Oxygen Saturation 97 % Mode of Delivery (Oxygen) Room air . General: Alert. Skin: Warm. Head: Atraumatic. Eye: Normal conjunctiva. Musculoskeletal: Normal ROM, normal strength, On the medial aspect of the left heel there is a 1.5 cm cystic structure which is tender to palpation, there is punctate central lesion without drainage, there is slight whitish- yellow opacification subcutaneously. No surrounding erythema. Neurological: Alert and oriented to person, place, time, and situation, normal sensory observed. Medical Decision Making Differential Diagnosis: Tophi, abscess, foreign body. Rationale: 53-year-old male with history of gout presented to the emergency department due to left heel pain. Differential as above. Exam is notable for 1.5 cm cystic structure without surrounding erythema concerning for small abscess versus foreign body reaction versus gouty tophi. X-rays pending to assess for evidence of foreign body and bony lesion. Will obtain labs including uric acid level and renal function. Anticipate signout to oncoming [facility] pending imaging, reassessment and disposition.. Results review: Lab results : Results 10/31/2023 14:39 EDT WBC 3.1 k/mm3 L RBC 4.92 m/mm3 Hgb 16.3 Gm/dL Hct 45.1 % MCV 91.7 femtoliters MCH 33.1 pg MCHC 36.1 g/dL Platelet Count 157 k/mm3 RDW-SD 39.8 femtoliters MPV 8.5 femtoliters L Nucleated RBC (Automated) 0.0 #/100 WBC'S Abs. NRBC 0.0 k/mm3 Abs. Neut 1.7 k/mm3 Abs. Lymph 1.0 k/mm3 Abs. [place] 0.2 k/mm3 L Abs. Eo 0.1 k/mm3 Abs. Baso 0.0 k/mm3 Neut % 54.4 % Lymph % 32.5 % [place] % 7.9 % Eos % 3.9 % Baso % 1.0 % Imm Gran 0.3 % Abs. Imm Gran 0.0 k/mm3 Hold Blue Top SPECIMEN DISCARDED AFTER 4 HOURS. Sodium 133 mmol/L Potassium 4.6 mmol/L Chloride 96 mmol/L L Bicarbonate Level 25 mmol/L Anion Gap 12 Glucose Level 79 mg/dL BUN 4 mg/dL L Creatinine-Blood 0.8 mg/dL Estimated GFR Creatinine 106 ML/MIN/1.73 M2 Calcium 9.5 mg/dL Uric Acid 8.4 mg/dL , Interpretation Labs unremarkable. Radiology results: IMPRESSION: Erosive changes and soft tissue abnormality in the fifth metatarsophalangeal joint. The differential diagnosis would include infection or possibly without. Healed fracture of the fourth metatarsal. Postoperative changes. Degenerative changes. No evidence of acute osseous abnormality. . Reexamination/ Reevaluation Time: 10/31/2023 15:40:00 . Notes: Krista: Patient received in signout today at 3:00 PM. Patient is a 53-year-old man with a known history of gout who presents with atraumatic left heel pain and swelling for the past few days. He did try taking colchicine without relief. Patient denies have any fevers or chills. On exam, he has a firm area of swelling and erythema without warmth over the medial aspect of the left heel. He does have tenderness to palpation, however no pain out of proportion. Foot is warm well-perfused. +2 DP and PT pulses. Scar over first MTP from prior toe fusion. 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 He reports that he had a calcium deposit removed over the heel previously. Exam is not consistent with cellulitis or abscess at this time. Discussed case with Dr. Devlin, orthopedics. Recommends course of prednisone. Patient also requesting prescription pain medication. Suspect little gout tophi. , Draw-image L heel . Impression and Plan Diagnosis Acute left heel pain, history of gout Plan Condition: Stable. Disposition: Discharged. Patient was given the following educational materials: Prescription Given this visit:Prescriptions Naproxen (naproxen 500 mg oral tablet) 1 tablet = 500 mg, By Mouth, 2 times a day, # 20 tablet, 0 Refills, with food, [id number], [address] [place] [address] [phone] Next Dose: Oxycodone / Acetaminophen (acetaminophen-oxyCODONE 325 mg-5 mg oral tablet) 1 tablet, By Mouth, Every 6 hours, # 12 tablet, 0 Refills, [facility] #[id number], [address] [place] [address] [phone] Next Dose: PredniSONE (predniSONE 10 mg oral tablet) 3 tablet = 30 mg, By Mouth, Daily, # 21 tablet, 0 Refills, [facility] #[id number], [address] [place] [address] [phone] Next Dose: Patient Instructions Given:-Follow-up with the orthopedist. -Do not drive, operate machinery, drink alcohol or take other sedatives if taking narcotic pain medicine. -Return to the emergency department immediately if you develop high fever, shaking chills, rapidly spreading redness or swelling, cloudy or foul-smelling drainage or other new concerning symptoms. Education Given:[employer] Ignite Patient Education - What is Gout? Patient Follow-up:Added Follow Up: Shyam Devlin MD 1-2 day: call to discuss follow up visit /ankita/ Adiranna Boland, estimator binding Staff Nurse Signed: 11/28/2023 09:37 Receipt Acknowledged By: 11/28/2023 16:09 /ankita/ RAN COSTELLO MD PHYSICIAN KYA,ADRIANNA [facility]IOR [facility] EASTRadha [facility]
--- OUTSIDE RECORDS SUMMARY | 2024-07-03 03:07 | XMS_ITS | Encounter Summary ---
Author Name [facility] [place] [facility] [place] [facility] [place] [facility] [place] Address [address] [place] [address] Care Team Providers Care Aerial Photogrammetrist Name Role Phone RAN COSTELLO Primary Care [...] STAND YSABEL SELF Jul 26, [phone] [id number] [phone] BEN RAN Garcia PATIENT BCBS MA FEP PREFERRED PROVIDER ORGANIZAT ION (PPO) STAND YSABEL INDIV IDUAL Jul 26, 2015 104 [id number] BEN RAN Garcia PATIENT [place] FEPRX PLAN PRESCRIPT ION CAREM ARK FEPRX Jul 26, 2015 [id number] BEN RAN Garcia PATIENT CAREMARK-F EP BCBS PRESCRIPT ION FEP CAREM ARK Jul 26, 2015 [id number] BEN GarciaRAN PATIENT Selected Encounter This section includes the information on record at [place] for the Encounter. Date/Time Encounter Type Encounter Description Reason Provider Source Mar 27, 2024 11:30 AM OFFICE O/P EST MOD 30 MIN PRIMARY CARE/MEDICINE ICD-10-CM M10.9 Gout, unspecified Abbe COSTELLO [facility] Encounter Template Text not used by [place] Assessments - Encounter Diagnoses This section includes the primary and secondary diagnoses documented for the Encounter. Date/Time Primary/Secondary Diagnosis Diagnosis Name Provider Source Apr 14, 2024 09:44 AM PRIMARY Gout, unspecified Abbe COSTELLO [facility] Apr 14, 2024 09:44 AM SECONDARY Abnormal level of enzymes in specimens from oth org/tiss Abbe COSTELLO [facility] Apr 14, 2024 09:44 AM SECONDARY Other benign neoplasm of skin of other parts of face Abbe COSTELLO [facility] Plan of Treatment: Future Appointments (+ 6 months) and Future Tests (+/- 45 days) The Plan of Treatment section includes future care activities for the patient from all [place] treatmentfacilities. This section includes future appointments and future orders which are active, pending or scheduled. Active, Pending, and Scheduled Orders This section includes a listing of several types of active, pending, and scheduled orders, including clinic medications orders, diagnostic test orders, procedure orders and consult orders; where the start date of the order is 45 days before the date of the Encounter or 45 days after the date of theEncounter. The data comes from all [place] treatment facilities. Test Date/Time Test Type Test Details Facility Name Mar 27, 2024 12:00 AM Laboratory - Chemi stry Order ALBUMIN BLOOD (SST-SERUM) [facility] Lab Results: +/- 30 days of the encounter This section includes the Chemistry and Hematology Lab Results on record with [place] for the patient. Radiology Reports and Pathology Reports are provided separately, in subsequent sections. Lab Results This section contains the Chemistry/Hematology Results that were resulted 30 days before or 30 daysafter the date of the Encounter. Date/Time Source Result Type Result - Unit Interpretation Reference Range Comment Mar 27, 2024 12:12 PM [facility] HEPATITIS B SURFACE ANTIGEN (HBsAg)- Specimen Type: SERUM Comment: This test detects [...] B surface antigen is frequently associated with infectivity. Ordering Provider: RAN COSTELLO Report Released Date/Time: Mar 27, 2024 12:01 PM Reporting Lab: [facility] [address] [facility] [address] Performing Lab: [facility] [address] [address] HBsAg Non Reactive Non Reactive Mar 27, 2024 12:12 PM [facility] HEPATITIS B CORE (Total) Ab Specimen Type: SERUM Comment: This test detects [...] B surface antigen is frequently associated with infectivity. Ordering Provider: RAN COSTELLO Report Released Date/Time: Mar 27, 2024 12:01 PM Reporting [facility] [address] [facility] [address] Performing Lab: [facility] [address] [facility] [address] HEPATITIS B CORE (Total) Ab Non Reactive Non Reactive Mar 27, 2024 12:12 PM [facility] CRISTINA SCREEN/TITER Specimen Type: SERUM No comment entered. Ordering Provider: ARN COSTELLO Report Released Date/Time: Mar 27, 2024 12:01 PM Reporting Lab: [facility] [address] [facility] [address] Performing Lab: [facility] [address] [facility] [address] CRISTINA SCREEN NEG Mar 27, 2024 12:[address] [facility] URIC ACID Specimen Type: SERUM No comment entered. Ordering Provider: RAN COSTELLO Report Released Date/Time: Mar 27, 2024 12:01 PM Reporting [facility] [address] [facility] [address] Performing Lab: [facility] [address] [facility] [address] URIC ACID 7.4 mg/dL H 3.5-7.2 Mar 27, 2024 12:[address] FERRITIN Specimen Type: SERUM No comment entered. Ordering Provider: RAN COSTELLO Report Released Date/Time: Mar 27, 2024 12:01 PM Reporting Lab: [facility]ENTERUSE[address] [address] Performing Lab: [facility]ENTERUSE[address] [address] FERRITIN 322 ng/mL H 20-300 Mar 27, 2024 12:12 PM [facility] HEPATITIS C ANTIBODY (HCV)-ARC Specimen Type: SERUM Comment: Hep C Ab: No HCV antibody detected. If recent infection is suspected or other evidence suggests HCV infection, consider HCV nucleic acid testing Ordering Provider: RAN COSTELLO Report Released Date/Time: Mar 27, 2024 12:01 PM Reporting Lab: [facility] CENTERUSETS [address] [address] Performing Lab: [address] [address] HEPATITIS C ANTIBODY NON-REACTIVE NON-REACTIV E Mar 27, 2024 12:12 PM [facility] ALBUMIN Specimen Type: SERUM No comment entered. Ordering Provider: RAN COSTELLO Report Released Date/Time: Mar 27, 2024 12:01 PM Reporting Lab: [facility]ENTERUSE[address] [address] Performing Lab: [facility]N [facility] CENTERUSETS [facility] [address] [facility] [address] ALBUMIN 4.2 g/dL 3.5-5.0 Mar 27, 2024 12:12 PM [facility]ENTERUSETS [facility] IRON & TIBC PANEL Specimen Type: SERUM No comment entered. Ordering Provider: RAN COSTELLO Report Released Date/Time: Mar 27, 2024 12:01 PM Reporting Lab: [facility] [place] [facility] [address] [facility] [address] Performing Lab: [facility]ITALRCHIL[facility] CENTERN [facility]ENTERUSE[address] [address] TIBC 333 ug/dL 204-475 IRON 161 ug/dL H 40-160 Transferrin Saturation 48.4 20.0-50.0 Transferrin (TRF) 252 mg/dL 200-360 Mar 27, 2024 12:[address] [facility] PROTEIN,TOTAL Specimen Type: SERUM No comment entered. Ordering Provider: RAN COSTELLO Report Released Date/Time: Mar 27, 2024 12:01 PM Reporting Lab: [facility] CENTERUSETS [address] [address] Performing Lab: [facility]ENTERUSETS [address] [address] PROTEIN,TOTAL 6.9 g/dL 6.0-8.3 Mar 27, 2024 12:[address] [facility] ALKALINE PHOSPHATASE Specimen Type: SERUM No comment entered. Ordering Provider: RAN COSTELLO Report Released Date/Time: Mar 27, 2024 12:01 PM Reporting Lab: [facility]N [facility]ENTERUSETS [address] [address] Performing Lab: [facility]ITALRCHIL[facility] CENTERN [facility] CENTERUSETS [address] [address] ALKALINE PHOSPHATASE 43 U/L 40-150 Mar 27, 2024 12:[address] [facility] AST Specimen Type: SERUM No comment entered. Ordering Provider: RAN COSTELLO Report Released Date/Time: Mar 27, 2024 12:01 PM Reporting Lab: [facility] [address] [facility] [address] Performing Lab: [facility] [address] [facility] [address] AST 47 U/L H 5-34 Mar 27, 2024 12:[address] [facility] PT & INR (PROTIME) Specimen Type: PLASMA No comment entered. Ordering Provider: RAN COSTELLO Report Released Date/Time: Mar 27, 2024 12:01 PM Reporting Lab: [facility] [address] [facility] [address] Performing Lab: [address] [address] INR 1.0 PROTIME 11.1 s 10.0-13.1 Vital Signs: All taken on the encounter date This section contains inpatient and outpatient Vital Signs collected on the date of the Encounter. Date/Time Temperature Pulse Blood Pressure Respiratory Rate SP02 Pain Height Weight Body Mass Index Source Mar 27, 2024 11:44 AM 97.7 98 158/82 16 96 6 69 153.8 23 [facility] Social History: Smoking Status (Most [...] took place. Date/Time Current Smoking Status Comment Kaylie ity Mar 27, 2024 11:30 AM VA-TOBACCO USER EVERY DAY [facility] Tobacco Use History This section includes a history of the smoking, or tobacco-related health factors, that were collected on or before the date of the Encounter. The data comes from the [place] facility where the Encounter took place. Date/Time Smoking Status/Tobacco Use Comment F acility Mar 27, 2024 11:30 AM VA-TOBACCO USE 30 YEARS OR MORE [facility] Mar 27, 2024 11:30 AM VA-TOBACCO USE ADVICE [facility] [place] [facility] Mar 27, 2024 11:30 AM VA-TOBACCO USE TOEING STOCKINGS NO [facility] [place] [facility] Mar 27, 2024 11:30 AM VA-TOBACCO USE MED NO [facility] [place] [facility] Mar 27, 2024 11:30 AM VA-TOBACCO USER EVERY DAY [facility] [place] [facility] Oct 17, 2022 01:00 PM VA-TOBACCO NEVER USED [facility] [place] [facility] Oct 15, 2021 01:30 PM VA-TOBACCO USE 30 YEARS OR MORE [facility] [place] [facility] Oct 15, 2021 01:30 PM VA-TOBACCO USE ADVICE [facility] [place] [facility] Oct 15, 2021 01:30 PM VA-TOBACCO USE TOEING STOCKINGS NO [facility] [place] [facility] Oct 15, 2021 01:30 PM VA-TOBACCO USE MED NO [facility] [place] [facility] Oct 15, 2021 01:30 PM VA-TOBACCO USE [place] 30 MIN OF WAKEUP [facility] [place] [facility] Oct 15, 2021 01:30 PM VA-TOBACCO USER EVERY DAY [place] [facility] [place] [facility] Mar 24, 2020 03:00 PM VA-TOBACCO USE 30 YEARS OR MORE [facility] [place] [facility] Mar 24, 2020 03:00 PM VA-TOBACCO USE ADVICE [facility] [place] [facility] Mar 24, 2020 03:00 PM VA-TOBACCO USE TOEING STOCKINGS NO [facility] [place] [facility] Mar 24, 2020 03:00 PM VA-TOBACCO USE MED NO [facility] [place] [facility] Mar 24, 2020 03:00 PM VA-TOBACCO USE [place] 30 MIN OF WAKEUP [facility] [place] [facility] Mar 24, 2020 03:00 PM VA-TOBACCO USER EVERY DAY [facility] [place] [facility] Dec 24, 2018 02:37 PM VA-TOBACCO USE > 1 5 LESS THAN 30 YEARS [facility] [place] [facility] Dec 24, 2018 02:37 PM VA-TOBACCO USE ADVICE [facility] [place] [facility] Dec 24, 2018 02:37 PM VA-TOBACCO USE TOEING STOCKINGS NO [place] [facility] [place] [facility] Dec 24, 2018 02:37 PM VA-TOBACCO USE MED NO [place] [facility] Dec 24, 2018 02:37 PM VA-TOBACCO USE [place] 30 MIN OF WAKEUP [place] [facility] Dec 24, 2018 02:37 PM [facility]-TOBACCO [facility]ER [facility] Encounter Notes: All associated encounter notes This section contains the clinical notes associated to the Encounter. Date/Time Encounter Note(s) Provider Source Mar 27, 2024 11:49 AM PREVENTIVE MEDICINE NURSING NOTE: LOCAL TITLE: CLINICAL REMINDERS/NURSING STANDARD TITLE: PREVENTIVE MEDICINE NURSING NOTE DATE OF NOTE: MAR 27, 2024@11:49 ENTRY DATE: MAR 27, 2024@11:49:16 AUTHOR: SABINA BALDWIN COSIGNER: URGENCY: STATUS: COMPLETED Suicide Screen: C-SSRS Screening [place] Suicide Severity Rating Scale (C-SSRS) screener 1. Over the past month, have you wished you were or wished you could go to sleep and not wake up? No 2. Over the past month, have you had any actual thoughts of killing yourself? No 3. Over the past month, have you been thinking about how you might do this? Response not required due to responses to other questions. 4. Over the past month, have you had these thoughts and had some intention of acting on them? Response not required due to responses to other questions. 5. Over the past month, have you started to work out or worked out the details of how to kill yourself? Response not required due to responses to other questions. 6. If yes, at any time in the past month did you intend to carry out this plan? Response not required due to responses to other questions. 7. In your lifetime, have you ever done anything, started to do anything, or prepared to do anything to end your life (for example, collected pills, obtained a gun, gave away valuables, went to the roof but didn't jump)? No 8. If YES, was this within the past 3 months? Response not required due to responses to other questions. Depression Screening: Perform PHQ-2 A PHQ-2 screen was performed. The score was 0 which is a negative screen for depression. Over the past two weeks, how often have you been bothered by the following problems? 1. Little interest or pleasure in doing things Not at all 2. Feeling down, depressed, or hopeless Not at all Tobacco Use Screening: The patient uses tobacco every day. The patient does not use tobacco within 30 minutes of waking up. The patient has been smoking or using tobacco for thirty years or more. Patient was advised to quit smoking and/or using tobacco. Discussion with patient included: - Quitting smoking or tobacco use is one of the most important things you can do to protect and improve your health and [place] has the resources to support you. - Set a quit date when you are ready to quit. - Get support from your family and friends. - Review any past quit attempts- What helped? What didn't? - On the day you plan to quit, get rid of all cigarettes and tobacco products from your home, car or work. - Using a combination of behavioral counseling or other support strategies and FDA-approved cessation medications is the most effective way to ensure success in quitting. Patient was offered Behavioral Counseling and other support strategies to assist with quitting. Discussion with patient included: - Behavioral counseling or other support strategies greatly increases your chances of successfully quitting smoking or tobacco use by helping you develop a quit plan and providing support and other strategies to make behavioral changes to help you quit. - [place] has a number of behavioral counseling options to help you with quitting, including: * Provide information about the facility smoking or tobacco use treatment options or clinics * [place]'s national quitline, 3-468-GIAX-VET, with counseling available Monday-Monday The patient was not interested in receiving additional information about how to use the treatment options discussed. Patient was offered FDA-approved cessation medications. Discussion with patient included: - Medications for Nicotine replacement therapy such as the patch, gum or lozenge, and other medications such as varenicline or bupropion, can play an important role in the initial weeks and months after you quit smoking or tobacco use. - Medications help with cravings and withdrawal symptoms and they greatly increase your chances of successfully quitting. The patient was not interested in a prescription for tobacco cessation medications. Influenza Immunization: Deferral / Refusal The patient declines to receive the recommended dose of seasonal influenza vaccine. Immunization: INFLUENZA, UNSPECIFIED FORMULATION Refusal Reason: PATIENT DECISION Patient refuses all immunization(s) in the FLU group Date Documented: 03/27/24 11:50 /ankita/ SABINA BALDWIN LPN LPN Signed: 03/27/2024 11:51 SABINA BALDWIN [place] [facility] [place] [facility] Mar 27, 2024 11:47 AM PHYSICIAN NOTE: LOCAL TITLE: MD NOTE STANDARD TITLE: PHYSICIAN NOTE DATE OF NOTE: MAR 27, 2024@11:47 ENTRY DATE: MAR 27, 2024@11:47:40 AUTHOR: ISAURA COSTELLO EXP COSIGNER: URGENCY: STATUS: COMPLETED HISTORY OF PRESENT ILLNESS: = RAN DAYDAY [place], is a 53 yo WHITE MALE who presents at the [place] [facility] CC. gout HPI. this vet presents to PCP clinic reporting that overall his gout is stable with daily use of allopurinol and colchicine. He has no fever, no joint swelling. 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 See ED notes from November on 11/27 in CPRS. vet [facility] and wants to see foot surgeon at that office. he has cyst on left eyebrow/ no problems w/vision, nontender but wants this removed. he is cutting down on etoh intake due to abnl liver tests in past. SH chews tobacco daily Active problems - Computerized Problem List is the source for the followin. Ganglion cyst of tendon sheath 2. Gout (SCT 71299042) 3. Hyponatraemia 4. Neutrophil count below reference range 5. Sleep apnea syndrome 6. Hepatic fibrosis 7. Depression (SCT 09805396) 8. Anxiety (SCT 21570194) 9. Alcohol abuse 10. Primary insomnia 11. Osteoarthritis of right knee joint 12. History of surgery 13. Under care of multiple providers HISTORY: PERIOD OF SERVICE - [facility] FROM Jan TO Jan COMBAT SERVICE INDICATED: No SERVICE CONNECTED % - 100 VITAL SIGNS: Temperature 97.7 F [36.5 C] (03/27/2024 11:44) Blood Pressure 158/82 (03/27/2024 11:44) Pulse 98 (03/27/2024 11:44) Respiration 16 (03/27/2024 11:44) Pain 6 (03/27/2024 11:44) BMI BMI: 22.8 Weight 153.8 lb [69.76 kg] (03/27/2024 11:44) Pulse Oximetry 96% (03/27/2024 11:44) Review of Systems: CONSTITUTIONAL: No fever, no loss of appetite ENT: No sore throat, no cough CARDIOVASCULAR: No chest pain, no palpitations RESPIRATORY: No SOB, no wheezing GASTROINTESTINAL: No abd pain, no N/V/D, no change in stool EXAMINATION General: this is pleasant, thin gentleman in no obvious distress. Mental Status: Alert and oriented x 3 Head: Normocephalic. Eyes: left eyebrow area with soft, movable cyst/nontender Ext: left foot/heel examined, tender tophi cyst on posterior portion. no redness. DATA REVIEW >> MEDICATIONS Reviewed Today (VA & Non VA) ALLERGIES: Patient has answered NKA Active Outpatient Medications (including Supplies): Issue Date Status Last Fill Active Outpatient Medications Refills Expiration 1) ALLOPURINOL 100MG TAB Qty: 90 for 90 ACTIVE Issu:08-28-23 days Sig: TAKE ONE TABLET BY MOUTH Refills: 1 Last:03-07-24 ONCE DAILY FOR GOUT Expr:08-28-24 2) COLCHICINE 0.6MG TAB Qty: 90 for 90 ACTIVE Issu:02-12-24 days Sig: TAKE ONE TABLET BY MOUTH Refills: 1 Last:03-07-24 ONCE DAILY FOR GOUT Expr:08-28-24 Start Date Active Non-VA Medications Refills Expiration 1) Non-VA ALLOPURINOL 100MG TAB SiMG ACTIVE BY MOUTH ONCE DAILY 2) Non-VA COLCHICINE TAB Sig: BY MOUTH ACTIVE ONCE DAILY NEEDED 3) Non-VA NAPROXEN 250MG TAB SiMG BY ACTIVE MOUTH NEEDED 5 Total Medications >> LABS REVIEWED TODAY: CHEM 7 TREND LAB CUMULATIVE SELECTED Collection DT Spec GLUCOSE BUN CREATIN Sodium K+/Pot CL CO2 02/20/2023 16:05 SERUM 75 4 L 0.77 134 L 4.3 95 L 26 11/08/2022 12:37 SERUM 129 H 4 L 0.81 131 L 3.9 96 L 22 05/05/2022 15:29 SERUM 83 4 L 0.78 135 4.5 98 L 29 LAB CUMULATIVE SELECTED 2 No selection items chosen for this component. CHEM 7 Results Collection DT Spec Sodium K+/Pot CL CO2 GLUCOSE BUN 02/20/2023 16:05 SERUM 134 L 4.3 95 L 26 75 4 L 11/08/2022 12:37 SERUM 131 L 3.9 96 L 22 129 H 4 L 05/05/2022 15:29 SERUM 135 4.5 98 L 29 83 4 L === CBC TREND Collection DT Spec WBC RBC HGB HCT MCV MCH PLT 02/20/2023 16:05 BLOOD 3.54 L 4.91 15.9 45.4 92.5 32.4 152 11/08/2022 12:37 BLOOD 2.39 L 4.89 16.0 45.0 92.0 32.7 H 145 05/05/2022 15:29 BLOOD 3.88 L 4.95 16.3 45.9 92.7 32.9 H 152 === HEMOGLOBIN A1C TREND Collection DT Spec HGBA1c 11/08/2022 12:37 BLOOD 4.3 05/05/2022 15:29 BLOOD 4.4 === LIPID PANEL TREND Collection DT Spec CHOL HDL CHO/HDL LDL-c TRIG 05/05/2022 15:29 SERUM 154 69 H 2.2 73 61 === UREA NITROGEN - NONE FOUND CREATININE-EGFR - NONE FOUND === LIVER PANEL TREND Collection DT Spec AST ALT T BILI ALK RAÚL T. PROT ALBUMIN 02/20/2023 16:05 SERUM 81 H 53 2.2 H 58 7.0 4.2 11/08/2022 12:37 SERUM 47 H 36 2.8 H 39 L 6.9 4.0 07/12/2022 15:49 SERUM 44 H 38 3.6 H 63 7.4 4.2 05/05/2022 15:29 SERUM 54 H 40 2.8 H 64 7.0 3.9 === PSA TREND No data available = Collection DT Spec TSH 11/08/2022 12:37 SERUM 2.23 == ANEMIA PANEL TREND Collection DT Spec HCT Ferrit IRON TIBC 02/20/2023 16:05 BLOOD 45.4 11/08/2022 12:37 BLOOD 45.0 07/12/2022 15:49 SERUM 401 H 167 H 342 05/05/2022 15:29 BLOOD 45.9 05/05/2022 15:29 SERUM 477.4 H 160 306 === PT INR TREND Collection DT Spec INR PT 02/20/2023 16:05 PLASM 1.0 11.1 11/08/2022 12:38 PLASM 1.0 11.2 === >> HEALTH MAINTENANCE PREVENTIVE MEDICINE GOALS Info Only: [facility] Video Connect Capable DUE NOW Advance Directive Screen MH AD May 09 Suicide Screen Oct 17 Toxic Exposure Screening DUE NOW Avg Risk Colorectal Cancer Screen DUE NOW Depression Screening Oct 17 Screen for Embedded Fragments DUE NOW Hepatitis B Immunization DUE NOW Lipid Screening May 05 PTSD Screening Jan 11 Tobacco Use Screening Oct 17 Influenza Immunization DUE NOW Medication Reconciliation DUE NOW Tdap Immunization DUE NOW Herpes Zoster (Shingles) Vaccine DUE NOW RHS Screen DUE NOW (Optional) Whole Health Documentation DUE NOW ASSESSMENT/PLAN: 1. gout/pain-tophi left heel 2. eyebrow cyst 3. transaminase level raised Plan 1. check uric acid level today 2. continue gout meds 3. refer to food surgeon at [facility]/ vet wants tophi removed/possible steroid injxn 4. refer to plastic surgeon to eval cyst on left eyebrow 5. check liver fxn/counselled about etoh intake/ SEE HPI 6. f/u w/ PCP in 6 mos and PRN LAB ORDERS FOR NEXT APPT. spent in patient care and education No barriers; Patient understands and agrees to current treatment plan. If pt has any questions, concerns, or changes in current health status he/she will call or come in to the VA. Medication Reconciliation: Outpatient: Has the patient been taking medications as documented in the EMLR? YES: The patient has been taking medications as documented in the EMLR. Essential Medication List for Review used to complete this medication reconciliation. INCLUDED IN THIS LIST: Alphabetical list of active outpatient prescriptions dispensed from this VA (local) and dispensed from another VA or DoD facility (remote) as well as inpatient orders (local, pending and active), local clinic medications, locally documented non-VA medications, and local prescriptions that have or been discontinued in the past 90 days. - All changes in medications, including all non-VA/Herbal/OTC medications were entered into CPRS. - If there were any medications the patient should no longer take, they were discontinued. - The patient/caregiver was instructed to update this list, discard old lists, and take this list to the next appointment, whether with a VA or non-VA provider. /ankita/ RAN COSTELLO MD PHYSICIAN Signed: 03/27/2024 12:23 ISAURA COSTELLO [place] [facility]
--- OUTSIDE RECORDS SUMMARY | 2024-07-03 03:08 | XMS_ITS | Data Portability ---
Author Organization [facility], [facility] Page Address [address] [place] [address] Assessment Encounter Date Assessment Date Assessment LastModified by Organization Details LastModified Time 11/14/2023 11/14/2023 53-year-old bwfbi-dnxu-dzsgx ant male presents today with several year history of slowly progressive mass along the volar surface of the IP joint of the right thumb, volar surface of the DIP joint of the right index finger, and less so about the volar surface of the IP joint of the left thumb. 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 These masses are nontender, nontransillumina ting, do not glide with tendon excursion, and have no overlying skin changes present. I reviewed the potential for observation versus surgical excision with the risk of some stiffness of the digits in addition to standard surgical risks. At this point he would like to consider having his masses removed and particularly of the right hand thumb and index finger. Will arrange for further evaluation with Dr. 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 We discussed the possibility of tophus recurrence even after surgical excision. Postoperative recovery questions have been addressed. Surgery to be scheduled. [email or web address] Not available 12/01/2023 15:29:58 Plan of Treatment Reminders Order Date Submit Date Provider Last Modified By Organization Details Last Modified Time Details Appointments None recorde d. Lab None recorde d. Referral None recorde d. Procedures None recorde d. Surgeries None recorde d. Imaging XR, hand, 3 or more view - 307 3v bilat hands 024 11/14/19 24 [email or web address] [facility], [address], [address], [place], [address], 4 13:50:56 Medication Orders None recorde d. Patient TargetsNo targets recorded. Patient InstructionsNo instructions recorded. Reason for Referral None Reported. Results Created Date Observation Date Name Description Value Unit Range Abnormal Flag Note LastModifiedBy Organization Detail LastModifiedTime 03/15/20 24 07/14/2020 imagi ng/di gertrudisos tic resul t No observ ation record ed. [email or web address] Not Available 02/16 18:22:50 Result Notes None recorded. Problems Name Problem SNOMED Code Status Onset Date Resolution Date Notes Provider Name and Address Organization Details Recorded Time Bursitis of olecranon of right elbow 539551967647 108 Active 2017 Problem Code: M70.21; Problem Code Type: ICD-10; Status: 'A'; Not Available [facility] 4 11:59:22 Bilateral ganglion cyst of hands 469336215231 69307 Active 2023 Carl Mccarthy PA-C [address], [place], [address] , [facility] [place] 4 08:47:21 Problem Notes None recorded. Procedures Surgical History None recorded. Imaging Results Imaging Date Name Status LastModified by Organiz ation Details LastModified Time 07/14/2020 imaging/diag nostic result completed [email or web address] Information not available 03/15/2024 18:22:50 Procedure Notes None recorded. Medical Equipment None Reported. Allergies Allergen ID Allergen Name Allergen Category Reaction Reaction Severity Criticality Documentation Date Start Date Code Code System Note Provider Name and Address Organization Details Recorded Time 647244 shellfish derived food,medi cation Not available Not available Not available 11/14/2023 Miya Regalado [facility] [place] - [place] 13:30:32 Medications Name Sig Start Date Stop Date Status Note LastModified by Organization Details LastModified Time prednisone 10 mg tablet TAKE 3 TABLETS BY MOUTH DAILY FOR 7 DAYS 11/13 completed Not Available Not Available Not Available oxycodone-a cetaminophe n 5 mg-325 mg tablet TAKE 1 TABLET BY MOUTH EVERY 6 HOURS NEEDED FOR SEVERE PAIN 11/13 completed Not Available Not Available Not Available naproxen 500 mg tablet TAKE 1 TABLET BY MOUTH TWICE DAILY NEEDED FOR MODERATE PAIN WITH FOOD 11/13 completed Not Available Not Available Not Available oxycodone 5 mg tablet TAKE 1 TABLET BY MOUTH EVERY 6 HOURS NEEDED FOR PAIN active Not Available Not Available No t Available colchicine active Not Available Not Av ailable Not Available oxycodone HCl-oxycodo ne-ASA four times a dayDO NOT DRIVE WHILE TAKING THIS MEDICATIO N 11/13 completed Statu s: 'Curr ent'; Not Available Not Available Not Available Vitals Date Recorded Body height Body mass index (BMI) Body weight Provider Name and Address Organization Details Last Updated DateTime 11/14/2023 175.26 cm 22.9 kg/m2 62581.82 g Miya Regalado [facility] 11/14/2023 13:30:27 Date Recorded Body height Body mass index (BMI) Body weight Provider Name and Address Organization Details Last Updated DateTime 12/01/2023 175.26 cm 22.9 kg/m2 10850.82 g ELDON CARLSON [facility] 12/01/2023 14:23:22 Social History None recorded. Functional Status None recorded. Mental Status None recorded. Family History Nothing Reported. Medical History No medical history recorded. Past Encounters Encounter ID Performer Location Encounter Start Date Encounter Closed Date Diagnosis/Indication Diagnosis SNOMED-CT Code Diagnosis ICD10 Code [id number] MILDRED Martinez [address] [place] [address] 11/14/2023 13:17:49 11/14/2023 13:50:56 Bilateral ganglion cyst of hands 6870706694 4425040 M67.441 M67.327 [id number] MD Angela Cummins [address] [place], [place] [address] 12/01/2023 14:06:07 12/20/2023 14:22:07 Mass of subcutaneous tissue of finger of right hand [id number] 7274859 R22.31 [id number] Sondra Franks, OTR/L,CHT [place] [address] [place] [address] 05/07/2024 13:31:35 05/07/2024 13:52:39 Mass of soft tissue 284737969 M79.89 Postoperative visit 1836 61380 Z48.89 Health Concerns Section Related Observation LastModified by Organization Detai ls LastModified Time None Recorded Concern Status LastModified by Organization Details LastModified Time None Recorded Advance Directives Directive None Recorded Payers Encounter Date Sequence Insurance Name Policy Number Policy Serrano Covered Member ID Serrano Member ID Guarantor Name 11/14/2023 [facility] Alexander Kearney [id number] Alexander Kearney 12/01/2023 [facility] Alexander Kearney [id number] Alexander Kearney 05/07/2024 [facility] Alexander Kearney [id number] Alexander Kearney Notes Date Note Type Note Provider Name and Address Organization Details Recorded Time 11/14/2023 text/html I am seeing this patient under the supervision of Dr. Eisenberg who was available but who did not see the patient Chief Complaint: New evaluation for bilateral hand cysts HPI: 53-year-old male presents today for evaluation of cyst located on both hands. Patient is right-hand dominant. He reports a several year history of an enlarging nonpainful mass of the IP joint volar surface of the right thumb, and the volar surface of the DIP joint of the right index finger. He also notes an early evolving mass of the IP joint volar surface of the left thumb as well. He does have an past medical history significant for gout, and he is currently on daily colchicine prescribed by the [place]. He notes restrictions in his range of motion mostly about his right hand, and difficulty writing and holding a pen. He presents today for further evaluation. No complaints of numbness or tingling. He does report in the past his index finger mass open spontaneously and some whitish type material leaked out of this area. 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 These are painful. The 1 on the thumb did erupt previously but is still present and painful. Kiarra Malin MD [address], [place], [address], [facility] 12/01/2023 15:30:19 05/07/2024 text/html This is a 53-year-old man who had surgery with Dr. Malin on 04/23/2024 to have an excision of soft tissue gouty tophi masses of both the right thumb and index finger. He presents to the office today for the first postoperative hand therapy visit for a wound care assessment and removal of sutures. Sondra Franks, OTR/L,CHT [address], [place], [address], [facility] 05/07/2024 13:52:34
--- OUTSIDE RECORDS SUMMARY | 2024-07-03 03:08 | XMS_ITS ---
Author Name [facility] [place] [facility] [place] Address [address] [place] [address] Care Team Providers Care Air Analysis Technician Name Role Phone RAN COSTELLO Primary [...] STAND YSABEL SELF Jul 26, 2015 [id number] [phone] BEN RAN Garcia PATIENT [employer] [place] FEP PREFERRED PROVIDER ORGANIZAT ION (PPO) STAND YSABEL INDIV IDUAL Jul 26, 2015 104 [id number] BEN RAN Garcia PATIENT [employer] FEPRX PLAN PRESCRIPT ION CAREM ARK FEPRX Jul 26, 2015 [id number] BEN RAN Garcia PATIENT CAREMARK-F EP BCBS PRESCRIPT ION FEP CAREM ARK Jul 26, 2015 [id number] BEN RAN Garcia PATIENT Selected Encounter This section includes the information on record at [place] for the Encounter. Date/Time Encounter Type Encounter Description Reason Pro vider Source Mar 28, 2024 12:37 PM Outpatient Encounter PRIMARY CARE/MEDICINE IHE Encounter Template Text not used by [place] Plan of Treatment: Future Appointments (+ 6 months) and Future Tests (+/- 45 days) The Plan of Treatment section includes future care activities for the patient from all [place] treatmentfacilities. This section includes future appointments and [...] of theEncounter. The data comes from all [place] treatment facilities. Test Date/Time Test Type Test Details Facility Name Mar 27, 2024 12:00 AM Laboratory - Chemi stry Order ALBUMIN BLOOD (SST-SERUM) [facility] Lab Results: +/- 30 days of the encounter This section includes the Chemistry and Hematology Lab Results on record with [place] for the patient. Radiology Reports and Pathology Reports are provided separately, in subsequent sections. Lab Results This section contains the Chemistry/Hematology Results that were resulted 30 days before or 30 daysafter the date of the Encounter. Date/Time Source Result Type Result - Unit Interpretation Reference Range Comment Mar 27, 2024 12:12 PM [facility] HEPATITIS B SURFACE ANTIGEN (HBsAg)- Specimen [...] Mar 27, 2024 12:01 PM Reporting Lab: [facility] [address] [address] Performing Lab: [address] [address] HBsAg Non Reactive Non Reactive Mar 27, 2024 12:12 PM [facility] HEPATITIS B CORE (Total) Ab Specimen [...] Mar 27, 2024 12:01 PM Reporting Lab: [address] [address] Performing Lab: [address] [address] HEPATITIS B CORE (Total) Ab Non Reactive Non Reactive Mar 27, 2024 12:12 PM [facility] CRISTINA SCREEN/TITER Specimen Type: SERUM No comment entered. Ordering Provider: RAN COSTELLO Report Released Date/Time: Mar 27, 2024 12:01 PM Reporting Lab: [facility] [address] [address] Performing Lab: [facility] [address] [facility] [address] CRISTINA SCREEN NEG Mar 27, 2024 12:12 PM [facility] URIC ACID Specimen Type: SERUM No comment entered. Ordering Provider: RAN COSTELLO Report Released Date/Time: Mar 27, 2024 12:01 PM Reporting Lab: [facility] [address] [address] Performing Lab: [address] [address] URIC ACID 7.4 mg/dL H 3.5-7.2 Mar 27, 2024 12:12 PM [facility] HEPATITIS C ANTIBODY (HCV)-ARC Specimen Type: SERUM Comment: Hep C Ab: No HCV antibody detected. If recent infection is suspected or other evidence suggests HCV infection, consider HCV nucleic acid testing Ordering Provider: RAN COSTELLO Report Released Date/Time: Mar 27, 2024 12:01 PM Reporting Lab: [facility] [address] [address] Performing Lab[facility] [address] [address] HEPATITIS C ANTIBODY NON-REACTIVE NON-REACTIV E Mar 27, 2024 12:12 PM [facility] FERRITIN Specimen Type: SERUM No comment entered. Ordering Provider: RAN COSTELLO Report Released Date/Time: Mar 27, 2024 12:01 PM Reporting Lab[facility] [address] [address] Performing Lab: [facility] [address] FERRITIN 322 ng/mL H 20-300 Mar 27, 2024 12:12 PM [facility] IRON & TIBC PANEL Specimen Type: SERUM No comment entered. Ordering Provider: RAN COSTELLO Report Released Date/Time: Mar 27, 2024 12:01 PM Reporting Lab: [facility] [address] [address] Performing Lab: [facility] [address] TIBC 333 ug/dL 204-475 IRON 161 ug/dL H 40-160 Transferrin Saturation 48.4 20.0-50.0 Transferrin (TRF) 252 mg/dL 200-360 Mar 27, 2024 12:12 PM [facility] ALBUMIN Specimen Type: SERUM No comment entered. Ordering Provider: RAN COSTELLO Report Released Date/Time: Mar 27, 2024 12:01 PM Reporting Lab: [facility] [address] [address] Performing Lab: [facility] [address] ALBUMIN 4.2 g/dL 3.5-5.0 Mar 27, 2024 12:12 PM [facility] [place] [facility] PROTEIN,TOTAL Specimen Type: SERUM No comment entered. Ordering Provider: RAN COSTELLO Report Released Date/Time: Mar 27, 2024 12:01 PM Reporting Lab: [place] [facility] [place] [facility] [address] [address] Performing Lab: [place] [facility] [place] [address] [address] PROTEIN,TOTAL 6.9 g/dL 6.0-8.3 Mar 27, 2024 12:12 PM [facility] [place] [facility] ALKALINE PHOSPHATASE Specimen Type: SERUM No comment entered. Ordering Provider: RAN COSTELLO Report Released Date/Time: Mar 27, 2024 12:01 PM Reporting Lab: [place] [facility] [place] [address] [address] Performing Lab: [facility] [place] [place] [address] [address] ALKALINE PHOSPHATASE 43 U/L 40-150 Mar 27, 2024 12:12 PM [facility] AST Specimen Type: SERUM No comment entered. Ordering Provider: RAN COSTELLO Report Released Date/Time: Mar 27, 2024 12:01 PM Reporting Lab: [facility] [place] [address] [address] Performing Lab: [facility] [place] [address] [address] AST 47 U/L H 5-34 Mar 27, 2024 12:12 PM [facility] [place] [facility] PT & INR (PROTIME) Specimen Type: PLASMA No comment entered. Ordering Provider: RAN COSTELLO Report Released Date/Time: Mar 27, 2024 12:01 PM Reporting Lab: [place] [facility] [place] [place] [address] [address] Performing Lab: [place] [facility] [place] [address] [address] INR 1.0 PROTIME 11.1 s 10.0-13.1 Social History: Smoking Status (Most current) and Tobacco Use (All prior to encounter date) This section includes the most current, and the historical, smoking and tobacco- related health factors from the [place] facility where the Encounter took place. Current Smoking Status This section includes the most current smoking, or tobacco-related health factor, from the [place] facility where the Encounter took place. Date/Time Current Smoking Status Comment Facil ity Mar 27, 2024 11:30 AM VA-TOBACCO DOESNT USE [place] 30 MIN WAKEUP [place] [facility] Tobacco Use History This section includes a history of the smoking, or tobacco-related health factors, that were collected on or before the date of the Encounter. The data comes from the [place] facility where the Encounter took place. Date/Time Smoking Status/Tobacco Use Comment F acility Mar 27, 2024 11:30 AM VA-TOBACCO USE 30 YEARS OR MORE [facility] [place] [facility] Mar 27, 2024 11:30 AM VA-TOBACCO USE ADVICE [facility] [place] [facility] Mar 27, 2024 11:30 AM VA-TOBACCO USE CUSHION COVER INSPECTOR NO [facility] [place] [facility] Mar 27, 2024 11:30 AM VA-TOBACCO USE MED NO [facility] [place] [facility] Mar 27, 2024 11:30 AM VA-TOBACCO USER EVERY DAY [facility] [place] [facility] Oct 17, 2022 01:00 PM VA-TOBACCO NEVER USED [facility] [place] [facility] Oct 15, 2021 01:30 PM VA-TOBACCO USE 30 YEARS OR MORE [facility] [place] [facility] Oct 15, 2021 01:30 PM VA-TOBACCO USE ADVICE [facility] [place] [facility] Oct 15, 2021 01:30 PM VA-TOBACCO USE CUSHION COVER INSPECTOR NO [facility] [place] [facility] Oct 15, 2021 01:30 PM VA-TOBACCO USE MED NO [facility] [place] [facility] Oct 15, 2021 01:30 PM VA-TOBACCO USE WI 30 MIN OF WAKEUP [facility] [place] [facility] Oct 15, 2021 01:30 PM VA-TOBACCO USER EVERY DAY [facility] [place] [facility] Mar 24, 2020 03:00 PM VA-TOBACCO USE 30 YEARS OR MORE [facility] [place] [facility] Mar 24, 2020 03:00 PM VA-TOBACCO USE ADVICE [facility] [place] [facility] Mar 24, 2020 03:00 PM VA-TOBACCO USE CUSHION COVER INSPECTOR NO [facility] [place] [facility] Mar 24, 2020 03:00 PM VA-TOBACCO USE MED NO [facility] [place] [facility] Mar 24, 2020 03:00 PM VA-TOBACCO USE [place] 30 MIN OF WAKEUP [facility] [place] [facility] Mar 24, 2020 03:00 PM VA-TOBACCO USER EVERY DAY [facility] [place] [facility] Dec 24, 2018 02:37 PM VA-TOBACCO USE > 1 5 LESS THAN 30 YEARS [facility] [place] [facility] Dec 24, 2018 02:37 PM VA-TOBACCO USE ADVICE [facility] [place] [facility] Dec 24, 2018 02:37 PM VA-TOBACCO USE CUSHION COVER INSPECTOR NO [facility] [place] [facility] Dec 24, 2018 02:37 PM VA-TOBACCO USE MED NO [facility] [place] [facility] Dec 24, 2018 02:37 PM VA-TOBACCO USE [place] 30 MIN OF WAKEUP [facility] [place] [facility] Dec 24, 2018 02:37 PM VA-TOBACCO USER EVERY DAY [facility] [place] [facility] Encounter Notes: All associated encounter notes This section contains the clinical notes associated to the Encounter. Date/Time Encounter Note(s) Provider Source Mar 28, 2024 12:37 PM ADMINISTRATIVE NOT E: LOCAL TITLE: ADMINISTRATIVE RECALL NOTE STANDARD TITLE: ADMINISTRATIVE NOTE DATE OF NOTE: MAR 28, 2024@12:37 ENTRY DATE: MAR 28, 2024@12:38:10 AUTHOR: EDGAR BAL EXP COSIGNER: URGENCY: STATUS: COMPLETED RTC orders: Unable to contact patient: Attempts to contact: 1st attempt: Left voicemail 2nd attempt: Letter mailedDisposition onSep 3rd attempt: 4th attempt: /es/ EDGAR BAL Advanced Outsole Tacker Signed: 03/28/2024 12:38 ED[facility]AR BAL [facility]
--- OUTSIDE RECORDS SUMMARY | 2024-07-03 03:08 | XMS_ITS | Encounter Summary ---
Author Name [facility] [place] [facility] [place] [facility] [place] [facility] [place] Address [address] [place] [address] Care Team Providers Care Chinese Medicine Practitioner Name Role Phone RAN COSTELLO Primary Care [...] STAND YSABEL SELF Jul 26, 2015 104 [id number] [phone] BEN RAN Garcia BCBS [place] FEP PREFERRED PROVIDER ORGANIZAT ION (PPO) STAND YSABEL INDIV IDUAL Jul 26, 2015 104 [id number] 16 BEN GarciaRAN PATIENT CAREMARK FEPRX PLAN PRESCRIPT ION CAREM ARK FEPRX Jul 26, 2015 [id number] 16 BEN RAN Garcia PATIENT CAREMARK-F EP BCBS PRESCRIPT ION FEP CAREM ARK Jul 26, 2015 [id number] BEN RAN Garcia PATIENT Selected Encounter This section includes the information on record at CT for the Encounter. Date/Time Encounter Type Encounter Description Reason Pro vider Source Jun 24, 2024 11:35 AM Outpatient Encounter TELEPHONE TRIAGE IHE Encounter Template Text not used by [facility] Plan of Treatment: Future Appointments (+ 6 months) and Future Tests (+/- 45 days) The Plan of Treatment section includes future care activities for the patient from all CT treatmentfacilities. This section includes future appointments and future orders which are active, pending or scheduled. Future Appointments This section includes appointments that were scheduled to occur 6 months from the date of the Encounter, up to a maximum of 20 appointments. The data comes from all CT treatment facilities. Appointment Date/Time Appointment Type Appointme nt Facility Name Oct 31, 2024 11:00 AM AMBULATORY - MED[facility] Social History: Smoking Status (Most current) and Tobacco Use (All prior to encounter date) This section includes the most current, and the historical, smoking and tobacco- related health factors from the VA facility where the Encounter took place. Current Smoking Status This section includes the most current smoking, or tobacco-related health factor, from the CT facility where the Encounter took place. Date/Time Current Smoking Status Comment Facil ity Mar 27, 2024 11:30 AM VA-TOBACCO DOESNT USE WI [address] [facility] Tobacco Use History This section includes a history of the smoking, or tobacco-related health factors, that were collected on or before the date of the Encounter. The data comes from the [place] facility where the Encounter took place. Date/Time Smoking Status/Tobacco Use Comment F acility Mar 27, 2024 11:30 AM VA-TOBACCO USE 30 YEARS OR MORE [facility] [place] [facility] Mar 27, 2024 11:30 AM VA-TOBACCO USE ADVICE [facility] [place] [facility] Mar 27, 2024 11:30 AM VA-TOBACCO USE FUEL CELL BUILDER NO [facility] [place] [facility] Mar 27, 2024 11:30 AM VA-TOBACCO USE MED NO [facility] [place] [facility] Mar 27, 2024 11:30 AM VA-TOBACCO USER EVERY DAY [facility] [place] [facility] Oct 17, 2022 01:00 PM VA-TOBACCO NEVER USED [facility] [place] [facility] Oct 15, 2021 01:30 PM VA-TOBACCO USE 30 YEARS OR MORE [facility] [place] [facility] Oct 15, 2021 01:30 PM VA-TOBACCO USE ADVICE [facility] [place] [facility] Oct 15, 2021 01:30 PM VA-TOBACCO USE FUEL CELL BUILDER NO [facility] [place] [facility] Oct 15, 2021 01:30 PM VA-TOBACCO USE MED NO [facility] [place] [facility] Oct 15, 2021 01:30 PM VA-TOBACCO USE WI 30 MIN OF WAKEUP [facility] [place] [facility] Oct 15, 2021 01:30 PM VA-TOBACCO USER EVERY DAY [facility] [place] [facility] Mar 24, 2020 03:00 PM VA-TOBACCO USE 30 YEARS OR MORE [facility] [place] [facility] Mar 24, 2020 03:00 PM VA-TOBACCO USE ADVICE [facility] [place] [facility] Mar 24, 2020 03:00 PM VA-TOBACCO USE FUEL CELL BUILDER NO [facility] [place] [facility] Mar 24, 2020 03:00 PM VA-TOBACCO USE MED NO [facility] [place] [facility] Mar 24, 2020 03:00 PM VA-TOBACCO USE WI 30 MIN OF WAKEUP [facility] [place] [facility] Mar 24, 2020 03:00 PM VA-TOBACCO USER EVERY DAY [facility] [place] [facility] Dec 24, 2018 02:37 PM VA-TOBACCO USE > 1 5 LESS THAN 30 YEARS [facility] [place] [facility] Dec 24, 2018 02:37 PM VA-TOBACCO USE ADVICE [facility] [place] [facility] Dec 24, 2018 02:37 PM VA-TOBACCO USE FUEL CELL BUILDER NO [facility] [place] [facility] Dec 24, 2018 02:37 PM VA-TOBACCO USE MED NO [facility] [place] [facility] Dec 24, 2018 02:37 PM VA-TOBACCO USE WI 30 MIN OF WAKEUP [facility] [place] [facility] Dec 24, 2018 02:37 PM VA-TOBACCO USER EVERY DAY [facility] [place] [facility] Encounter Notes: All associated encounter notes This section contains the clinical notes associated to the Encounter. Date/Time Encounter Note(s) Provider Source Jun 24, 2024 11:35 AM RN PROGRESS NOTE: LOCAL TITLE: CCC: CLINICAL TRIAGE STANDARD TITLE: RN PROGRESS NOTE DATE OF NOTE: JUN 24, 2024@11:35:31 ENTRY DATE: JUN 24, 2024@11:35:31 AUTHOR: JAMAL ALBARRAN COSIGNER: URGENCY: STATUS: COMPLETED Patient Demographics Patient Name: RAN HOLLINGSWORTH Patient Primary [address]: [address] [place] [id number] Patient Primary Patient : 1970 Patient Age: 53 Caller/Recipient Relation to Patient: Self Caller Name: RAN HOLLINGSWORTH Emergency Contact: ONE NO Triage Summary Conducted triage/discussed symptoms Pain Score: 1 Utilized the Triage Tool: Yes Chief Complaint: Lump Under The Skin System WHEN: Within 3 Days Nurse's Recommendation / WHEN: Within 3 Days System WHERE: Clinic Nurse's Recommendation / WHERE: Clinic/[facility] Patient Disposition Patient/Caregiver agrees to plan of care: Yes Patient WHERE: Clinic/[facility] Nursing Plan and Disposition Other course(s) of action Generated msg to PACT/Provider Provided guidance for worsening symptoms: *Caller/Patient* advised to call facilities [place] Clinical Contact Center or seek immediate medical attention for new or worsening symptoms Nurse Summary Nurse Summary: Pt states that the last time he saw his PCP, he was referred to a specialist and he states ''when I called to go see the specialist, they told me that they would not schedule me because they said that were not going to schedule me since they said the CT did not pay their last bill.'' Pt denies new symptoms, states he has been waiting over a month to get scheduled and was denied. See triage for additional details and information. Pt states he has has already been evaluated by his provider for this. Denies new onset symptoms. Education provided for S/S to monitor for. Call warm transferred to the MSA line for further assistance with scheduling within the triage recommendations. Please see [facility] note or schedule for further update on appt status. FYI to PACT for further follow-up. Non-Triage/Non-Symptom Call Provided patient w/ administrative Info Transferred to Other [facility] Services: Scheduling & Admin Other Contact Center: [facility] taking call to further assist. Clinical Contact Center Codes Clinic/Location: V1 CWM PHONE [facility] RN Decision Support System Output: Triage Complete Triage Date: 06/24/2024, 11:22 AM Triage Note: Decision Support Tool Used: TXCC Phone Triage 24 Jun 2024 16:21:37 +0000 [facility] Demographics 54 y/o Male Results CC: Lump Under The Skin Software suggested: Within 3 Days Software suggested follow-up location: Clinic, consider [facility] Values and Measures Duration of CC: 3 Months Positive Responses HPI: eyelid erythema HPI: skin lump, firm, on margin of eyelid HPI: skin lump, painful or tender Education Verbal Education Provided for: Lymph Gland Swelling Home Care Subcutaneous Nodules Home Care Stye Home Care Education Log Pt being rescheduled for appt. IMPORTANT: This note was created by [facility] Clinical Contact Center staff. Please do not alert the staff member by adding them as a signer for future communications. Alerts are not monitored by this user. /ankita/ JAMAL ALBARRAN RN,BSN VISN 1 CCC RN Signed: 06/24/2024 11:35 Receipt Acknowledged By: 06/25/2024 10:02 /es/ CARLITA ANAND REGISTERED NURSE 06/25/2024 09:34 /es/ Adrianna Schmitz RN Primary Care Staff Nurse JAMAL ALBARRAN [facility]
--- OUTSIDE RECORDS SUMMARY | 2024-07-03 03:08 | XMS_ITS ---
Author Name [facility] [place] [facility] [place] [facility] [place] Address [address] [place] [address] Care Team Providers Care Enzyme Chemist Name Role Phone RAN COSTELLO Primary Care [...] STAND YSABEL SELF Jul 26, 2015 104 [id number] [phone] BEN RAN Garcia PATIENT BCBS [place] FEP PREFERRED PROVIDER ORGANIZAT ION (PPO) STAND YSABEL INDIV IDUAL Jul 26, 2015 104 [id number] BEN RAN Garcia PATIENT CAREMARK FEPRX PLAN PRESCRIPT ION CAREM ARK FEPRX Jul 26, 2015 [id number] BEN RAN Garcia PATIENT CAREMARK-F EP BCBS PRESCRIPT ION FEP CAREM ARK Jul 26, 2015 [id number] 16 BEN GarciaRAN PATIENT Selected Encounter This section includes the information on record at [place] for the Encounter. Date/Time Encounter Type Encounter Description Reason Pro vider Source Jun 24, 2024 11:31 AM Outpatient Encounter ADMIN PAT ACTIVTIES (MASNONCT) IHE Encounter Template Text not used by [place] Plan of Treatment: Future Appointments (+ 6 months) and Future Tests (+/- 45 days) The Plan of Treatment section includes future care activities for the patient from all [place] treatmentfacilities. This section includes future appointments and future orders which are active, pending or scheduled. Future Appointments This section includes appointments that were scheduled to occur 6 months from the date of the Encounter, up to a maximum of 20 appointments. The data comes from all [place] treatment facilities. Appointment Date/Time Appointment Type Appointme nt Facility Name Oct 31, 2024 11:00 AM AMBULATORY - MEDICINE [place] [facility] [place] [facility] Social History: Smoking Status (Most current) and Tobacco Use (All prior to encounter date) This section includes the most current, and the historical, smoking and tobacco- related health factors from the VA facility where the Encounter took place. Current Smoking Status This section includes the most current smoking, or tobacco-related health factor, from the [place] facility where the Encounter took place. Date/Time Current Smoking Status Comment Facil ity Mar 27, 2024 11:30 AM VA-TOBACCO USER EVERY DAY [facility] Tobacco Use History This section includes a history of the smoking, or tobacco-related health factors, that were collected on or before the date of the Encounter. The data comes from the [place] facility where the Encounter took place. Date/Time Smoking Status/Tobacco Use Comment F acility Mar 27, 2024 11:30 AM VA-TOBACCO USE 30 YEARS OR MORE [place] [facility] [place] [facility] Mar 27, 2024 11:30 AM VA-TOBACCO USE ADVICE [facility] [place] [facility] Mar 27, 2024 11:30 AM VA-TOBACCO USE MANAGER HELPDESK NO [facility] [place] [facility] Mar 27, 2024 11:30 AM VA-TOBACCO USE MED NO [facility] [place] [facility] Mar 27, 2024 11:30 AM VA-TOBACCO USER EVERY DAY [facility] [place] [facility] Oct 17, 2022 01:00 PM VA-TOBACCO NEVER USED [facility] [place] [facility] Oct 15, 2021 01:30 PM VA-TOBACCO USE 30 YEARS OR MORE [facility] [place] [facility] Oct 15, 2021 01:30 PM VA-TOBACCO USE ADVICE [facility] [place] [facility] Oct 15, 2021 01:30 PM VA-TOBACCO USE MANAGER HELPDESK NO [facility] [place] [facility] Oct 15, 2021 01:30 PM VA-TOBACCO USE MED NO [facility] [place] [facility] Oct 15, 2021 01:30 PM VA-TOBACCO USE WI 30 MIN OF WAKEUP [facility] [place] [facility] Oct 15, 2021 01:30 PM VA-TOBACCO USER EVERY DAY [facility] [place] [facility] Mar 24, 2020 03:00 PM VA-TOBACCO USE 30 YEARS OR MORE [facility] [place] [facility] Mar 24, 2020 03:00 PM VA-TOBACCO USE ADVICE [facility] [place] [facility] Mar 24, 2020 03:00 PM VA-TOBACCO USE MANAGER HELPDESK NO [facility] [place] [facility] Mar 24, 2020 03:00 PM VA-TOBACCO USE MED NO [facility] [place] [facility] Mar 24, 2020 03:00 PM VA-TOBACCO USE WI 30 MIN OF WAKEUP [facility] [place] [facility] Mar 24, 2020 03:00 PM VA-TOBACCO USER EVERY DAY [facility] [place] [facility] Dec 24, 2018 02:37 PM VA-TOBACCO USE > 1 5 LESS THAN 30 YEARS [facility] [place] [facility] Dec 24, 2018 02:37 PM VA-TOBACCO USE ADVICE [facility] [place] [facility] Dec 24, 2018 02:37 PM VA-TOBACCO USE MANAGER HELPDESK NO [facility] [place] [facility] Dec 24, 2018 02:37 PM VA-TOBACCO USE MED NO [facility] [place] [facility] Dec 24, 2018 02:37 PM VA-TOBACCO USE WI 30 MIN OF WAKEUP [facility] [place] [facility] Dec 24, 2018 02:37 PM VA-TOBACCO USER EVERY DAY [facility] [place] [facility] Encounter Notes: All associated encounter notes This section contains the clinical notes associated to the Encounter. Date/Time Encounter Note(s) Provider Source Jun 25, 2024 09:36 AM ADDENDUM: LOCAL TITLE: Addendum STANDARD TITLE: ADDENDUM DATE OF NOTE: JUN 25, 2024@09:36:02 ENTRY DATE: JUN 25, 2024@09:36:02 AUTHOR: ADRIANNA BOLAND COSIGNER: URGENCY: STATUS: COMPLETED Please offer PCP appointment for lump under eyelid . Re: ortho consult- per consult comments Vet has outstanding bill with [facility] that he needs to speak to them about before schedualing. If he needs further clarification then he needs to call [facility] [phone] /ankita/ Adrianna Boland RN Primary Care Staff Nurse Signed: 06/25/2024 09:37 Receipt Acknowledged By: 06/25/2024 09:43 /ankita/ EDGAR BAL Advanced Delivery Merchandiser === --- Original Document --- 06/24/24 CCC: SCHEDULING ADMINISTRATION: Patient Demographics Patient Name: RAN HOLLINGSWORTH Patient Primary Phone: [phone] Patient Primary [address]: [address] [place] [address] Patient : 1970 Patient Age: 53 Caller/Recipient Relation to Patient: Self Caller Name: RAN HOLLINGSWORTH Administrative Administrative Note Reason: Other Administrative Note Comments: Per- triage schedule within 3 days F2F or PHONE for Bump under Left eye lid. T/W did not see any appts available. Please call the @ [phone] IMPORTANT: This note was created by [facility] Clinical Contact Center staff. Please do not alert the staff member by adding them as a signer for future communications. Alerts are not monitored by this user. /ankita/ KAILA VELASQUEZ 1 [facility] AMSA Signed: 06/24/2024 11:31 Receipt Acknowledged By: * AWAITING SIGNATURE * CARLITA ANAND 06/25/2024 09:33 /mohini Boland RN Primary Care Staff Nurse 06/25/2024 ADDENDUM STATUS: COMPLETED MSA called to schedule appt. Offered 07/15 (next available). Bryannat states he will go to sick call to be evaluated. /ankita/ EDGAR BAL Advanced Delivery Merchandiser Signed: 06/25/2024 09:43 ADRIANNA BOLAND [place] [facility] [place] [facility] Jun 24, 2024 11:31 AM ADMINISTRATIVE NOTE: LOCAL TITLE: CCC: SCHEDULING ADMINISTRATION STANDARD TITLE: ADMINISTRATIVE NOTE DATE OF NOTE: JUN 24, 2024@11:31:50 ENTRY DATE: JUN 24, 2024@11:31:50 AUTHOR: KAILA YBARRA COSIGNER: URGENCY: STATUS: COMPLETED CCC: SCHEDULING ADMINISTRATION Has ADDENDA Patient Demographics Patient Name: RAN HOLLINGSWORTH Patient Primary Phone: [phone] Patient Primary [address]: [address] [place] [address] Patient : 1970 Patient Age: 53 Caller/Recipient Relation to Patient: Self Caller Name: RAN HOLLINGSWORTH Administrative Administrative Note Reason: Other Administrative Note Comments: Per- triage schedule within 3 days F2F or PHONE for Bump under Left eye lid. T/W did not see any appts available. Please call the @ [phone] IMPORTANT: This note was created by [facility] Clinical Contact Center staff. Please do not alert the staff member by adding them as a signer for future communications. Alerts are not monitored by this user. /ankita/ KAILA YBARRA VISN 1 [facility] AMSA Signed: 06/24/2024 11:31 Receipt Acknowledged By: 06/25/2024 10:00 /ankita/ CARLITA ANAND REGISTERED NURSE 06/25/2024 09:33 /mohini Boland RN Primary Care Staff Nurse 06/25/2024 ADDENDUM STATUS: COMPLETED Please offer PCP appointment for lump under eyelid . Re: ortho consult- per consult comments Allison has outstanding bill with [facility] that he needs to speak to them about before schedualing. If he needs further clarification then he needs to call [facility] [phone] /mohini Boland RN Primary Care Staff Nurse Signed: 06/25/2024 09:37 Receipt Acknowledged By: 06/25/2024 09:43 /ankita/ EDGAR BAL Advanced Delivery Merchandiser 06/25/2024 ADDENDUM STATUS: COMPLETED MSA called to schedule appt. Offered 07/15 (next available). Vet states he will go to sick call to be evaluated. /ankita/ EDGAR BAL Advanced Delivery Merchandiser Signed: 06/25/2024 09:43 KAILA YBARRARTino [facility]
--- NOTE | 2024-07-03 04:13 | ED_ITS ---
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 plan to get surgical removed by invasive cardiologist comes here as it ruptured and started leaking Related Data Previous Rx's ?Medication ?Instructions ?Recorded oxycodone 5 mg tablet 5 mg PO Q6H PRN pain #20 tabs 07/03/24 prednisone 20 mg tablet 40 mg (2 x 20 mg) PO DAILY #10 tabs 07/03/24 Allergies Allergy/AdvReac Type Severity Reaction Status Date / Time SEASONAL ALLERGIES AdvReac Unknown ITCHY EYES Uncoded 07/03/24 02:33 Review of Systems 2 Review of Systems: Yes all other systems are reviewed and are negative [facility] Social History Social History Smoked in Last 30 Days: No Use of substances other than those prescribed or required for medical reasons: No Advance Directives: No Do you have a plan to hurt others: No Plan Physical Exam 2 Vital Signs: Vital Signs: Last Vital Signs Temp 98.5 F 07/03/24 04:50 Pulse 98 07/03/24 04:50 Resp 16 07/03/24 04:50 BP 142/81 H 07/03/24 04:50 Pulse Ox 97 07/03/24 04:50 O2 Del Method Room Air 07/03/24 04:50 BMI result Body Mass Index 22.9 Eyes: Eyes/upper lids images: 1. Gouty Tophi which is leaking bloody secretions with crystals Medications Administered Discontinued Medications Generic Name Dose Route Start Last Admin Trade Name Freq PRN Reason Stop Dose Admin Oxycodone HCl 10 mg 07/03/24 04:29 07/03/24 04:41 Oxycodone Hcl Immed Release 5 Mg Tablet PO 07/03/24 04:30 10 mg ONCE ONE Administration Prednisone 60 mg 07/03/24 04:29 07/03/24 04:41 Prednisone 20 Mg Tablet PO 07/03/24 04:30 60 mg ONCE ONE Administration Medical Decision Making Medical Decision Making MDM Narrative: Patient with left eyelid tophi which got ruptured and started leaking crystals with fluid which was squeezed advised follow up with invasive cardiologist for enucleation Discharge Plan Discharge Clinical Impression: Gouty tophi Patient Disposition: Home, Self-Care Instructions: Gout (ED) Additional Instructions: Warm packs as advised Continue allopurinol and colchicine Oxycodone for severe pain Take prednisone as prescribed Follow with your invasive cardiologist for further surgery Prescriptions: New oxycodone 5 mg tablet 5 mg PO Q6H PRN (Reason: pain) Qty: 20 0RF Rx Instructions: Partial Fill upon patient request. prednisone 20 mg tablet 40 mg PO DAILY Qty: 10 0RF Interventions: ED Discharge Assessment Last Done: 07/03/24 04:50 Discharge Date/Time: 07/03/24 04:50 Print Language: Lebanese
[2024-07-03] MEDS: predniSONE 20 MG TABLET 60 MG PO (04:41)
[2024-07-03] MEDS: oxyCODONE HCl Immed Release 5 MG TABLET 10 MG PO (04:41)
[2024-07-03 04:50] VITALS: BP 142/81; PULSE 98; RESP 16; TEMP 36.9; O2SAT 97
== END 2024-07-03 04:50 | disposition home or self-care (01) ==
PROVIDERS: Emergency Provider Internal Medicine; PCP Internal Medicine
DX: M10.09 Idiopathic gout, multiple sites (principal); H57.12 Ocular pain, left eye; Z79.899 Other long term (current) drug therapy
CPT/HCPCS: 99283; 99284